=== PATIENT | female | born 1985 | race Caucasian/White ===

== ENCOUNTER 2019-12-18 12:53 | Emergency (ER) | payer MEDICAID, SELFPAY ==
[2019-12-18 12:59] VITALS: BP 164/87; PULSE 72; RESP 18; TEMP 36.3; O2SAT 100; BMI 31.3
--- NOTE | 2019-12-18 13:28 | W.ED.FEMALGU ---
HPI - Female Genitourinary General: Chief complaint: Urogenital-Female Stated complaint: pain with Time Seen by Provider: 12/18/19 13:19 History of Present Illness: HPI Narrative: Patient is a 34-year-old female who comes to the ED with abdominal pain with . Patient had a tubal ligation back in August. On November 29 patient had a positive test. And approximately 3 days after positive test she started having bleeding. She was then seen at hospital in [place] and they performed an hCG quant which was very low and ultrasound showed no intrauterine , but with low quant they did not think they would see anything. Patient's bleeding has slowed down and stopped. She has been seen her OB doctor multiple times and hCG quant has been checked several times. hCG quant values continue to increase but not at as high of a rate as expected in . Patient had a ultrasound performed on Friday, December 13 and the hCG quant was approximately 2200 and no intrauterine or fetus identified in falopian tubes. Patient has another appointment with OB on this coming Friday and doctor told her to go to ED if she notices any change in symptoms. Today she started having some mild pelvic pain that radiates to lower back pain and was wanting to get evaluated. Patient says she has not had any vaginal bleeding for the last 10 days and has no vaginal bleeding today. Denies any fever, chills, nausea/vomiting, diarrhea, constipation, blood in stool, hematuria. Patient does endorse some mild dysuria. Patient states that her pain is very mild and does not currently want any pain medications. Associated symptoms: Reports abdominal pain (pelvic pain-mild); Deny headache(s) or nausea Date of Last Menstrual Period: 10/31/19 Review of Systems Const: Denies: fever(s), chills or fatigue Eyes: Denies: change in vision or eye discomfort ENMT: Denies: throat pain, odynophagia, nasal discharge or nasal congestion Card: Denies: chest pain, palpitations, edema, swelling of feet/ankles, dyspnea on exertion or orthopnea Resp: Denies: dyspnea, productive cough or non-productive cough GI: Reports: abdominal pain (pelvic pain-mild); Denies: nausea, vomiting, diarrhea, constipation or hematochezia : Reports: dysuria and pelvic pain (mild); Denies: flank pain or hematuria Musc: Reports: back pain (new low back pain that ); Denies: neck pain or extremity swelling Skin/Breast: Denies: rash or new lesions Neuro: Denies: headache(s), numbness in extremities or weakness in extremities [facility] ED Female Reproductive History: Date of last menstrual period: 10/31/19 Physical Exam Const: COMMON NORMALS: no acute distress, patient oriented x3, healthy appearing and alert GENERAL APPEARANCE: cooperative and comfortable HENMT: COMMON NORMALS: normocephalic HEAD & SCALP: normocephalic MOUTH: Normal oral and palatal mucosa present THROAT: posterior oropharynx normal and uvula midline Neck/C-Spine: COMMON NORMALS: supple GENERAL: Yes normal visual inspection Resp: COMMON NORMALS: normal respiratory effort, No retractions, No use of accessory muscles and clear to auscultation bilaterally AUSCULTATION: clear to auscultation bilaterally Cardio: COMMON NORMALS: regular rate, regular rhythm, S1 normal heart sound present, S2 normal heart sound present, No gallops present (Cardio), No clicks present (Cardio), No murmurs present (Cardio) and Peripheral pulses 2+ throughout RATE: regular rate RHYTHM: regular rhythm HEART SOUNDS: S1 normal heart sound present and S2 normal heart sound present PERIPHERAL PULSES: Peripheral pulses 2+ throughout GI: COMMON NORMALS: Normal to inspection, nondistended, normoactive bowel sounds present, Soft to palpation, non-tender and no masses PALPATION: Yes Soft to palpation and Yes Bladder palpation abnormal : COMMON NORMALS: Yes no CVA tenderness BLADDER/KIDNEY EXAM: Yes no CVA tenderness and Yes Bladder palpation abnormal Bladder abnormal details: tender Back/Pelvis: COMMON NORMALS: no CVA tenderness Extremity: COMMON NORMALS: normal to inspection and no pedal edema Neuro: COMMON NORMALS: patient oriented x3 and moves all extremities SENSORIUM/ORIENTATION: Yes alert Skin: COMMON NORMALS: no rashes or lesions noted GENERAL SKIN EXAM: no rashes or lesions noted and dry skin Course Vital Signs: Vital signs: Vital Signs Temperature 97.3 F L 12/18/19 12:59 Pulse Rate 72 12/18/19 12:59 Respiratory Rate 18 12/18/19 12:59 Blood Pressure 164/87 12/18/19 12:59 Pulse Oximetry 100 12/18/19 12:59 MDM - Female MDM Narrative: Medical decision making narrative: Patient is a 34-year-old female comes to the ED with some mild abdominal pain with positive test. Positive test on November 29. Patient has no active bleeding and has not had any bleeding in approximately 10 days. Patient has had a tubal ligation and has been seen multiple times by her OB provider to evaluate her elevated hCG quant. She was last seen by her provider on Fridaydecember 13 and hCG quant was approximately 2200 and ultrasound was performed and showed no intrauterine and no gestational sac seen in the fallopian tubes. Physical exam shows a healthy female in no acute distress or pain. CBC, CMP and UA were all unremarkable here in the ED. hCG quant was 3421. Ultrasound of the pelvis with transvaginal showed no IUP or gestational sac seen in fallopian tubes. Patient was discharged and told to follow-up with her OB at her previously scheduled appointment on Friday. Patient to return to ED if she has any change or worsening symptoms. Patient understood and agreed with plan. Lab Data: Attestation: I reviewed the patient's lab results. Labs: Lab Results 12/18/19 12/18/19 12/18/19 Range/Units 13:24 13:40 13:40 WBC 8.2 (4.0-10.0) 10^3/ uL RBC 4.69 (4.1-5.3) 10^6/u L Hgb 13.0 (11.5-15.3) g/dL Hct 41.2 (37.0-47.0) % MCV 87.8 (81-99) fL MCH 27.7 L (28.0-34.0) pg MCHC 31.6 (30.0-36.0) g/dL RDW 12.9 (12.1-15.1) % Plt Count 354 (130-400) 10^3/c mm MPV 10.0 (7.4-10.4) fL Neut % (Auto) 61.0 % Lymph % (Auto) 26.9 % Bay % (Auto) 9.4 % Eos % (Auto) 1.7 % Baso % (Auto) 0.6 % Neut # (Auto) 4.99 (1.8-7.7) 10^3/u L Lymph # (Auto) 2.2 (0.8-4.8) 10^3/u L Bay # (Auto) 0.8 (0.2-0.9) 10^3/u L Eos # (Auto) 0.1 (0.0-0.8) 10^3/u L Baso # (Auto) 0.1 (0.0-0.1) 10^3/u L Nucleated RBC % (a uto) 0 % Nucleated RBCs # 0.0 /100WBC Sodium 137 (136-145) mmol/L Potassium 3.6 (3.5-5.1) mmol/L Chloride 103 (98-107) mmol/L Carbon Dioxide 25 (22-29) mmol/L Anion Gap 12.6 (5-19) BUN 11 (6-20) mg/dL Creatinine 0.5 (0.5-0.9) mg/dL GFR Calculation 140.4 H (90-130) mL/min Glucose 94 (65-115) mg/dL Calculated Osmolal ity 280 L (285-295) mOsm/k g Calcium 9.2 (8.5-10.5) mg/dL Total Bilirubin 0.2 (0.15-1.2) mg/dL AST 18 (0-32) U/L ALT 16 (0-33) U/L Alkaline Phosphata se 61 (35-105) IU/L Total Protein 7.8 (6.6-8.7) g/dL Albumin 4.8 (3.5-5.2) g/dL Globulin 3.0 (1.3-4.6) g/dL Lipase 39 (13-60) U/L Ser , Giovany i-Qnt 3421.00 mIU/mL Urine Color Yellow (Yellow) Urine Appearance Clear (CLEAR) Urine pH 7 (5-7) Ur Specific Gravit y 1.005 (1.005-1.030) Urine Protein Neg (Negative) Urine Glucose (UA) Norm (Normal) Urine Ketones Negative (Negative) Urine Blood Neg (Negative) Urine Nitrate Negative (Negative) Urine Bilirubin Neg (NEGATIVE) Urine Urobilinogen Norm (Negative) mg/dL Ur Leukocyte Mitzi ase Negative (Negative) Blood Type Rho(D) Type Antibody Screen 12/18/19 Range/Units 13:40 WBC (4.0-10.0) 10^3/ uL RBC (4.1-5.3) 10^6/u L Hgb (11.5-15.3) g/dL Hct (37.0-47.0) % MCV (81-99) fL MCH (28.0-34.0) pg MCHC (30.0-36.0) g/dL RDW (12.1-15.1) % Plt Count (130-400) 10^3/c mm MPV (7.4-10.4) fL Neut % (Auto) % Lymph % (Auto) % Bay % (Auto) % Eos % (Auto) % Baso % (Auto) % Neut # (Auto) (1.8-7.7) 10^3/u L Lymph # (Auto) (0.8-4.8) 10^3/u L Bay # (Auto) (0.2-0.9) 10^3/u L Eos # (Auto) (0.0-0.8) 10^3/u L Baso # (Auto) (0.0-0.1) 10^3/u L Nucleated RBC % (a uto) % Nucleated RBCs # /100WBC Sodium (136-145) mmol/L Potassium (3.5-5.1) mmol/L Chloride (98-107) mmol/L Carbon Dioxide (22-29) mmol/L Anion Gap (5-19) BUN (6-20) mg/dL Creatinine (0.5-0.9) mg/dL GFR Calculation (90-130) mL/min Glucose (65-115) mg/dL Calculated Osmolal ity (285-295) mOsm/k g Calcium (8.5-10.5) mg/dL Total Bilirubin (0.15-1.2) mg/dL AST (0-32) U/L ALT (0-33) U/L Alkaline Phosphata se (35-105) IU/L Total Protein (6.6-8.7) g/dL Albumin (3.5-5.2) g/dL Globulin (1.3-4.6) g/dL Lipase (13-60) U/L Ser , Giovany i-Qnt mIU/mL Urine Color (Yellow) Urine Appearance (CLEAR) Urine pH (5-7) Ur Specific Gravit y (1.005-1.030) Urine Protein (Negative) Urine Glucose (UA) (Normal) Urine Ketones (Negative) Urine Blood (Negative) Urine Nitrate (Negative) Urine Bilirubin (NEGATIVE) Urine Urobilinogen (Negative) mg/dL Ur Leukocyte Mitzi ase (Negative) Blood Type O Positive Rho(D) Type Positive Antibody Screen Negative Imaging Data: US OB: Attestation: I personally reviewed and interpreted this imaging study as follows: Radiologist's impression: Pelvic ultrasound with transvaginal?prelim report shows no /gestational sac seen in either the uterus or tubes. [address] [address] Ultrasound Report Signed Patient: Caryl Roberson Unit #: [id number] : 1985 Age/Sex: 34 / F ADM Date: 12/18/19 Loc: ER Room/Bed: Attending Dr: Ordering Provider/Ordering MD: Carl Godoy Date of Service: 12/18/19 Procedure(s): US OB lmt with transvaginal Accession Number(s): [id number] Report Number: [id number] PROCEDURE INFORMATION: Exam: US Duplex Artery and Vein of the Abdominal and/or Reproductive Organs, Complete Exam date and time: 12/18/2019 3:27 PM Age: 34 years old Clinical indication: Other: Pelvic pain; Gestational age or lmp: Lmp 5-31-20 (6wks 6 days); Additional info: Elevated hcg, tubal ligation in August TECHNIQUE: Imaging protocol: Real-time duplex ultrasound scan of the arterial and venous flow of the abdominal and/or reproductive organs with B-mode, color Doppler flow and spectral waveform analysis with image documentation. Exam focused on the region of clinical concern. Complete exam. Duplex images required to evaluate vascular conditions. COMPARISON: US transvaginal [id number] 02/03/2019 2:18 PM FINDINGS: Other vasculature: Doppler evaluation of the right ovary was performed and demonstrates appropriate arterial and venous waveforms. Doppler evaluation left ovary was performed and demonstrates good arterial and venous flow. Ovaries: Subcentimeter right ovarian cysts are noted. The right ovary is otherwise unremarkable. The right ovary measures 2.6 x 1.9 x 2.4 cm. The left ovary measures 2.3 x 2.1 x 2.3 cm. Subcentimeter left ovarian cysts are noted. The left ovary is unremarkable. IMPRESSION: No ovarian torsion. The ovaries are unremarkable in appearance. PROCEDURE INFORMATION: Exam: US , Limited and US , Transvaginal Exam date and time: 12/18/2019 3:27 PM Age: 34 years old Clinical indication: Other: Pelvic pain; Gestational age or lmp: Lmp 5-31-20 (6wks 6 days); Additional info: Elevated hcg, tubal ligation in August TECHNIQUE: Imaging protocol: Real-time ultrasound of the maternal uterus with image documentation. Transvaginal imaging was used for better evaluation of the fetus and adnexa. Exam focused on the clinical indication. COMPARISON: US transvaginal [id number] 02/03/2019 2:18 PM FINDINGS: Gestation: No gestational sac is identified in the uterus. No gestational sac in either adnexa. No ectopic . Yolk sac is not visualized. Heart rate: No pole or cardiac activity is identified. MATERNAL: Uterus: Uterus measures 8.9 x 4.6 x 5.2 cm. Endometrial stripe measures 8.6 mm. Uterus is retroflexed. Cervix: Probable nabothian cysts are noted in the cervix. Right adnexa: The right ovary measures 2.6 x 1.9 x 2.4 cm. Doppler evaluation of the right ovary was performed and demonstrates appropriate arterial and venous waveforms. Subcentimeter right ovarian cysts are noted. The right ovary is otherwise unremarkable. Left adnexa: The left ovary measures 2.3 x 2.1 x 2.3 cm. Doppler evaluation left ovary was performed and demonstrates good arterial and venous flow. Subcentimeter left ovarian cysts are noted. The left ovary is unremarkable. Other findings: No free fluid. US/US OB lmt with transvaginal IMPRESSION: 1. No gestational sac is identified in the uterus or either adnexa. This is a of indeterminate location. Follow-up ultrasound/follow-up serial beta hCG is recommended since early intrauterine , ectopic or spontaneous cannot be differentiated with this exam. 2. Otherwise unremarkable exam. No ovarian torsion. The ovaries are unremarkable in appearance. Discharge Plan Discharge Patient Disposition: Home, Self-Care Clinical Impression: Elevated serum hCG Condition: Stable Prescriptions: No Action No Known Home Medications RF: 0 Discharge Orders: Discharge Order (Routine); Ordered 12/18/19 Ordered By: Carl Godoy Discharge Diet: Regular Discharge Activity: Resume usual activity Activity Restrictions/Additional Instructions: Follow-up with medical provider at next scheduled appointment on this coming Friday. Your hCG quant level was 3421 on Friday. return to the ER or your medical provider if condition worsens. Please read and understand discharge instructions. If any questions, please ask. Discharge Date/Time: 12/18/19 15:55 Coding Level of Care Code ED Preconstruction Manager for Chg Fwd Exam Comprehensive
--- NOTE | 2019-12-18 13:45 | USR_ITS ---
PROCEDURE INFORMATION: Exam: US Duplex Artery and Vein of the Abdominal and/or Reproductive Organs, Complete Exam date and time: 12/18/2019 3:27 PM Age: 34 years old Clinical indication: Other: Pelvic pain; Gestational age or lmp: Lmp 5-31-20 (6wks 6 days); Additional info: Elevated hcg, tubal ligation in August TECHNIQUE: Imaging protocol: Real-time duplex ultrasound scan of the arterial and venous flow of the abdominal and/or reproductive organs with B-mode, color Doppler flow and spectral waveform analysis with image documentation. Exam focused on the region of clinical concern. Complete exam. Duplex images required to evaluate vascular conditions. COMPARISON: US transvaginal [id number] 02/03/2019 2:18 PM FINDINGS: Other vasculature: Doppler evaluation of the right ovary was performed and demonstrates appropriate arterial and venous waveforms. Doppler evaluation left ovary was performed and demonstrates good arterial and venous flow. Ovaries: Subcentimeter right ovarian cysts are noted. The right ovary is otherwise unremarkable. The right ovary measures 2.6 x 1.9 x 2.4 cm. The left ovary measures 2.3 x 2.1 x 2.3 cm. Subcentimeter left ovarian cysts are noted. The left ovary is unremarkable. IMPRESSION: No ovarian torsion. The ovaries are unremarkable in appearance. PROCEDURE INFORMATION: Exam: US , Limited and US , Transvaginal Exam date and time: 12/18/2019 3:27 PM Age: 34 years old Clinical indication: Other: Pelvic pain; Gestational age or lmp: Lmp 5-31-20 (6wks 6 days); Additional info: Elevated hcg, tubal ligation in August TECHNIQUE: Imaging protocol: Real-time ultrasound of the maternal uterus with image documentation. Transvaginal imaging was used for better evaluation of the fetus and adnexa. Exam focused on the clinical indication. COMPARISON: US transvaginal [id number] 02/03/2019 2:18 PM FINDINGS: Gestation: No gestational sac is identified in the uterus. No gestational sac in either adnexa. No ectopic . Yolk sac is not visualized. Heart rate: No pole or cardiac activity is identified. MATERNAL: Uterus: Uterus measures 8.9 x 4.6 x 5.2 cm. Endometrial stripe measures 8.6 mm. Uterus is retroflexed. Cervix: Probable nabothian cysts are noted in the cervix. Right adnexa: The right ovary measures 2.6 x 1.9 x 2.4 cm. Doppler evaluation of the right ovary was performed and demonstrates appropriate arterial and venous waveforms. Subcentimeter right ovarian cysts are noted. The right ovary is otherwise unremarkable. Left adnexa: The left ovary measures 2.3 x 2.1 x 2.3 cm. Doppler evaluation left ovary was performed and demonstrates good arterial and venous flow. Subcentimeter left ovarian cysts are noted. The left ovary is unremarkable. Other findings: No free fluid. US/US OB lmt with transvaginal IMPRESSION: 1. No gestational sac is identified in the uterus or either adnexa. This is a of indeterminate location. Follow-up ultrasound/follow-up serial beta hCG is recommended since early intrauterine , ectopic or spontaneous cannot be differentiated with this exam. 2. Otherwise unremarkable exam. No ovarian torsion. The ovaries are unremarkable in appearance.
[2019-12-18 13:56] LABS: Basophils # 0.1 10^3/uL (0.0-0.1); Basophils % 0.6 %; Eosinophils # 0.1 10^3/uL (0.0-0.8); Eosinophils % 1.7 %; Hematocrit 41.2 % (37.0-47.0); Lymphocytes # 2.2 10^3/uL (0.8-4.8); Lymphocytes % 26.9 %; Mean Corpuscular HGB Conc 31.6 g/dL (30.0-36.0); Mean Corpuscular Hemoglobin 27.7 pg (28.0-34.0); Mean Corpuscular Volume 87.8 fL (81-99); Monocytes # 0.8 10^3/uL (0.2-0.9); Monocytes % 9.4 %; Neutrophils # 4.99 10^3/uL (1.8-7.7); Nucleated Red Blood Cells % 0 %; Platelet Count 354 10^3/cmm (130-400); Red Blood Count 4.69 10^6/uL (4.1-5.3); Red Cell Distribution Width 12.9 % (12.1-15.1); White Blood Count 8.2 10^3/uL (4.0-10.0)
[2019-12-18 14:01] LABS: Add Urine Microscopic? NO
[2019-12-18 14:13] LABS: Bilirubin Urine Neg (NEGATIVE); Blood Urine Neg (Negative); Glucose Urine UA Norm (Normal); Ketones Urine Negative (Negative); Leukocyte Esterase Urine Negative (Negative); Nitrate Urine Negative (Negative); Protein Urine Neg (Negative); Specific Gravity, Urine 1.005 (1.005-1.030); Urine Appearance Clear (CLEAR); Urine Color Yellow (Yellow); Urobilinogen Urine Norm (Negative); pH Urine 7 (5-7)
[2019-12-18 14:28] LABS: Alanine Aminotransferase 16 U/L (0-33); Albumin Level 4.8 g/dL (3.5-5.2); Alkaline Phosphatase 61 IU/L (35-105); Anion Gap 12.6 (5-19); Aspartate Amino Transferase 18 U/L (0-32); Blood Urea Nitrogen 11 mg/dL (6-20); Calcium 9.2 mg/dL (8.5-10.5); Carbon Dioxide 25 mmol/L (22-29); Chloride 103 mmol/L (98-107); Glomerular Filtration Rate 140.4 mL/min (90-130); Glucose 94 mg/dL (65-115); Lipase 39 U/L (13-60); Osmolality Calculated 280 mOsm/kg (285-295); Potassium 3.6 mmol/L (3.5-5.1); Sodium 137 mmol/L (136-145); Total Bilirubin 0.2 mg/dL (0.15-1.2); Total Protein 7.8 g/dL (6.6-8.7)
== END 2019-12-18 15:55 | disposition home or self-care (01) ==
PROVIDERS: Emergency Provider Physician Assistant
DX: R78.89 Finding of other specified substances, not normally found in blood (principal)
CPT/HCPCS: 12345; 76815; 76817; 80053; 81003; 83690; 84702; 85025; 86850; 86900; 87040; 99282; 99283

== ENCOUNTER 2019-12-26 10:35 | Emergency (ER) | payer MEDICAID, SELFPAY ==
[2019-12-26 10:37] VITALS: BMI 31.3
[2019-12-26 10:41] VITALS: BP 145/83; PULSE 75; RESP 16; TEMP 36.7; O2SAT 98
--- NOTE | 2019-12-26 11:18 | ED_ITS ---
HPI - Skin/Abscess/Foreign Bdy General: Chief complaint: Skin/Abscess/Foreign Body Stated complaint: RASH/POSS POISON RAY Time Seen by Provider: 12/26/19 10:39 Source: patient Mode of arrival: ambulatory Limitations: no limitations History of Present Illness: HPI narrative: exposure to poison ray yesterday complaint: rash Location: generalized and face Review of Systems General: Reports: 10 or more systems reviewed and unremarkable except in HPI and below Skin/Breast: Reports: rash and pruritus [facility] ED Female Reproductive History: Date of last menstrual period: 10/31/19 Physical Exam Const: COMMON NORMALS: no acute distress, patient oriented x3, no limitations and alert GENERAL APPEARANCE: cooperative and comfortable ORIENTATION/CONSCIOUSNESS: Yes awake, Yes oriented to person, Yes oriented to place and Yes oriented to time HENMT: COMMON NORMALS: normocephalic, atraumatic, external ears normal, EAC's normal, TM's normal bilaterally and Normal external nose present HEAD & SCALP: normal to inspection, normocephalic and atraumatic FACE & SINUS: normal facial exam, sinuses nontender and face symmetric NOSE: Normal external nose present, Normal nares present and No nasal discharge present EXTERNAL EAR: Yes external ears normal EXTERNAL AUDITORY CANAL: EAC's normal TYMPANIC MEMBRANE: TM's normal bilaterally MOUTH: Normal oral and palatal mucosa present, lip normal and tongue normal THROAT: posterior oropharynx normal, tonsils normal and uvula midline Eye: COMMON NORMALS: Equal, round and reactive pupils present, EOMs intact bilaterally and conjunctivae normal GENERAL EYE: appearance normal, both eyes and all related structures and normal light reflex EYELID: eyelids normal CONJUNCTIVA: Yes conjunctivae normal PUPIL: Yes Equal, round and reactive pupils present EOM: Yes EOM abnormal DIRECT OPHTHALMOSCOPY: Yes normal light reflex Neck/C-Spine: COMMON NORMALS: full ROM, no lymphadenopathy, supple, no meningeal signs, no JVD and Thyroid normal GENERAL: Yes normal visual inspection THYROID: Thyroid normal CERVICAL SPINE: Yes cervical ROM normal and Yes normal cervical lordosis Lymph: LYMPHATIC: no lymphadenopathy noted Chest: COMMONS NORMALS: normal inspection of the chest and normal palpation of entire chest wall Resp: COMMON NORMALS: normal respiratory effort, No retractions and clear to auscultation bilaterally AUSCULTATION: clear to auscultation bilaterally Cardio: COMMON NORMALS: no JVD, regular rate, regular rhythm, S1 normal heart sound present, S2 normal heart sound present, No gallops present (Cardio), No clicks present (Cardio), No murmurs present (Cardio), No rub (Cardio) and Peripheral pulses 2+ throughout RATE: regular rate RHYTHM: regular rhythm HEART SOUNDS: S1 normal heart sound present and S2 normal heart sound present PERIPHERAL PULSES: Peripheral pulses 2+ throughout GI: COMMON NORMALS: Normal to inspection, nondistended, normoactive bowel sounds present, Soft to palpation, non-tender and no masses PALPATION: Yes Soft to palpation : COMMON NORMALS: Yes no CVA tenderness and Yes normal external appearance BLADDER/KIDNEY EXAM: Yes no CVA tenderness Back/Pelvis: COMMON NORMALS: no CVA tenderness, thoracic and lumbar spine normal to inspection, no thoracic nor lumbar tenderness and thoraco-lumbar ROM normal Extremity: COMMON NORMALS: normal to inspection, full ROM, capillary refill normal, no joint enlargement, no clubbing, cyanosis or edema, no calf tenderness and no pedal edema GENERAL: Yes normal exam except as noted Neuro: COMMON NORMALS: patient oriented x3, moves all extremities, no focal motor deficits, no sensory deficits noted and gait normal SENSORIUM/ORIENTATION: Yes alert, Yes oriented to person, Yes oriented to place and Yes oriented to time MENINGEAL SIGNS: Yes no meningeal signs Psych: COMMON NORMALS: mental status grossly normal, Normal thought process present, cooperative, normal affect, speech normal and activity/motor behavior normal SPEECH: Yes normal speech THOUGHT PROCESS: Normal thought process present Skin: COMMON NORMALS: no wounds and turgor normal GENERAL SKIN EXAM: turgor normal RASHES: rashes noted (generalized papular lesions) Course ED course: Pt came into contact with poison ray 1 to 2 days ago. She has a rash that is generalized on her body and includes her face as well. I will prescribe her a medrol dose khoi but advise that she attempts benadryl and topical hydrocortisone before she fills script. Pt needs to also contact her OB doctor. Vital Signs: Vital signs: Vital Signs Temperature 98.1 F 12/26/19 10:41 Pulse Rate 75 12/26/19 10:41 Respiratory Rate 16 12/26/19 10:41 Blood Pressure 145/83 12/26/19 10:41 Pulse Oximetry 98 12/26/19 10:41 Discharge Plan Discharge Patient Disposition: Home Clinical Impression: Poison ray dermatitis Condition: Stable Prescriptions: New methylprednisolone [Medrol (Khoi)] 4 mg tablets,dose pack See Rx Instructions .ROUTE .COMPLEX Qty: 21 RF: 0 No Action No Known Home Medications RF: 0 Discharge Diet: Usual diet Discharge Activity: Resume usual activity Activity Restrictions/Additional Instructions: follow up with OB tomorrow about filling your medrol dose khoi and take benadryl OTC every 8 hours as well as topical hydrocortisone for itching. Due to your the use of steroids in the first trimester can be harmful to your baby. Close monitoring with OB will be needed before you should fill this script. Coding Level of Care Code ED Pipe Coverer And Insulator for Meena Barry
== END 2019-12-26 11:40 | disposition home or self-care (01) ==
PROVIDERS: Emergency Provider Nurse Practitioner Family
DX: L23.7 Allergic contact dermatitis due to plants, except food (principal)
CPT/HCPCS: 12345; 99281; 99282

== ENCOUNTER 2020-01-02 11:55 | Emergency (ER) | payer MEDICAID, SELFPAY ==
[2020-01-02] VITALS (8 sets, daily range): BP systolic 110–132; BP diastolic 75–93; PULSE 75–91; RESP 14–20; TEMP 36.9; O2SAT 96–100; BMI 31.3
--- NOTE | 2020-01-02 12:12 | USR_ITS ---
PROCEDURE INFORMATION: Exam: US First Trimester, Transabdominal and US , Transvaginal Exam date and time: 01/02/2020 1:05 PM Age: 34 years old Clinical indication: complicated by abdominal or pelvic pain; Left lower quadrant; First trimester; Gestational age or lmp: Unclear (recent diagnosis of ectopic); Patient HX: Recent diagnosis of ectopic 3 days ago. Patient given methotrexate. H/o tubal ligation reversal TECHNIQUE: Imaging protocol: Real-time transabdominal obstetrical ultrasound of the maternal pelvis and a first trimester , less than 14 weeks 0 days, with image documentation. Transvaginal imaging was used for better evaluation of the fetus and adnexa. COMPARISON: US OB lmt with transvaginal 12/18/2019 3:09 PM FINDINGS: Gestation: Negative for intrauterine gestational sac, pole, or yolk sac MATERNAL: Uterus: Unremarkable. 8.7 cm x 4.4 cm x 6 cm Endometrium: 7.5 mm Cervix: Cervical myometrial cyst present. Right adnexa: Unremarkable. 3 cm x 2.4 cm x 3.4 cm Left adnexa: Unremarkable. 4.9 cm x 2.5 cm x 2.6 cm Intraperitoneal space: There is small volume intraperitoneal free fluid, right adnexa US/US OB <=14 wk fetus w transvag IMPRESSION: 1. Negative for a intrauterine gestational sac pole and yolk sac 2. Negative uterus, and endometrium 3. Negative bilateral ovaries 4. Small free fluid collection is seen right adnexa . 5. Small cervical myometrial cyst.
--- NOTE | 2020-01-02 12:15 | ED_ITS ---
HPI - General: Chief complaint: Abdominal Pain Stated complaint: abd pain-known ECTOPIC Time Seen by Provider: 01/02/20 12:06 History of Present Illness: HPI Narrative: Patient is currently . She is 4 para 3. Patient has had a tubal ligation. She was diagnosed with an ectopic 3 days ago and given methotrexate. Patient reports a sudden severe increase in pain earlier this morning. MD Complaint: abdominal pain and vaginal bleeding Onset (ago): day(s) Pain Consistency: constant Location: pelvis Severity: severe Quality: Stabbing, Sharp and Constant Relieving factors: none Exacerbating factors: movement Vaginal bleeding: light Date of Last Menstrual Period: 10/31/19 Patient : Yes OB History - Current : other (Ectopic) Review of Systems General: Reports: 10 or more systems reviewed and unremarkable except in HPI and below PFSH ED PFSH: Social History Smoking and tobacco status: never smoked Alcohol intake: never Substance/Drug Use: never Female Reproductive History: Date of last menstrual period: 10/31/19 Physical Exam Const: COMMON NORMALS: patient oriented x3, no limitations and alert GENERAL APPEARANCE: in distress HENMT: COMMON NORMALS: normocephalic, atraumatic, external ears normal and Normal external nose present HEAD & SCALP: normocephalic and atraumatic FACE & SINUS: normal facial exam NOSE: Normal external nose present EXTERNAL EAR: Yes external ears normal MOUTH: Normal oral and palatal mucosa present Neck/C-Spine: COMMON NORMALS: full ROM, no lymphadenopathy, supple, no meningeal signs and no JVD GENERAL: Yes normal visual inspection Resp: COMMON NORMALS: normal respiratory effort, No retractions, No use of accessory muscles and clear to auscultation bilaterally AUSCULTATION: clear to auscultation bilaterally Cardio: COMMON NORMALS: no JVD, regular rate and regular rhythm RATE: regular rate RHYTHM: regular rhythm GI: COMMON NORMALS: Normal to inspection, nondistended, normoactive bowel sounds present, Soft to palpation, non-tender, No hepatosplenomegaly present and no masses INSPECTION: Yes normal to inspection AUSCULTATION: Yes normoactive bowel sounds PALPATION: Yes Soft to palpation and Yes No hepatosplenomegaly present PERCUSSION: normal to percussion : COMMON NORMALS: Yes no CVA tenderness and Yes normal external appearance BLADDER/KIDNEY EXAM: Yes no CVA tenderness Back/Pelvis: COMMON NORMALS: no CVA tenderness, thoracic and lumbar spine normal to inspection, no thoracic nor lumbar tenderness, thoraco-lumbar ROM normal and straight leg raise negative bilaterally Extremity: COMMON NORMALS: normal to inspection, full ROM, capillary refill normal, no joint enlargement, no clubbing, cyanosis or edema, no calf tenderness and no pedal edema Neuro: COMMON NORMALS: patient oriented x3, moves all extremities, no focal motor deficits and no sensory deficits noted SENSORIUM/ORIENTATION: Yes alert MENINGEAL SIGNS: Yes no meningeal signs Psych: COMMON NORMALS: mental status grossly normal, Normal thought process present, cooperative, normal affect and speech normal SPEECH: Yes normal speech THOUGHT PROCESS: Normal thought process present Skin: COMMON NORMALS: no rashes or lesions noted, no wounds, turgor normal, no jaundice, no petechiae and no mottling GENERAL SKIN EXAM: no rashes or lesions noted and turgor normal Course ED course: Patient has a known ectopic . Ultrasound does not show evidence of Yoshi into her ovary rupture or active bleeding. Patient will be dismissed from the emergency department. She is instructed to contact her OB doctor in [facility] first thing in the morning and to return to the emergency room immediately for any problems or concerns. Vital Signs: Vital signs: Vital Signs Temperature 98.4 F 01/02/20 12:01 Pulse Rate 76 01/02/20 13:30 Respiratory Rate 18 01/02/20 14:32 Blood Pressure 110/75 01/02/20 13:30 Pulse Oximetry 98 01/02/20 14:32 MDM - OB/Uterine Contractions Lab Data: Labs: Lab Results 01/02/20 01/02/20 01/02/20 Range/Units 12:33 12:33 12:33 WBC 9.8 (4.0-10.0) 10^3/ uL RBC 4.50 (4.1-5.3) 10^6/u L Hgb 12.4 (11.5-15.3) g/dL Hct 38.2 (37.0-47.0) % MCV 84.9 (81-99) fL MCH 27.6 L (28.0-34.0) pg MCHC 32.5 (30.0-36.0) g/dL RDW 12.6 (12.1-15.1) % Plt Count 361 (130-400) 10^3/c mm MPV 10.2 (7.4-10.4) fL Neut % (Auto) 67.3 % Lymph % (Auto) 23.4 % [place] % (Auto) 4.9 % Eos % (Auto) 3.1 % Baso % (Auto) 0.7 % Neut # (Auto) 6.56 (1.8-7.7) 10^3/u L Lymph # (Auto) 2.3 (0.8-4.8) 10^3/u L [place] # (Auto) 0.5 (0.2-0.9) 10^3/u L Eos # (Auto) 0.3 (0.0-0.8) 10^3/u L Baso # (Auto) 0.1 (0.0-0.1) 10^3/u L Nucleated RBC % (a uto) 0 % Nucleated RBCs # 0.0 /100WBC Sodium 137 (136-145) mmol/L Potassium 3.6 (3.5-5.1) mmol/L Chloride 103 (98-107) mmol/L Carbon Dioxide 23 (22-29) mmol/L Anion Gap 14.6 (5-19) BUN 12 (6-20) mg/dL Creatinine 0.7 (0.5-0.9) mg/dL GFR Calculation 95.2 (90-130) mL/min Glucose 98 (65-115) mg/dL Calculated Osmolal ity 280 L (285-295) mOsm/k g Calcium 9.5 (8.5-10.5) mg/dL Total Bilirubin 0.2 (0.15-1.2) mg/dL AST 25 (0-32) U/L ALT 29 (0-33) U/L Alkaline Phosphata se 66 (35-105) IU/L Total Protein 7.8 (6.6-8.7) g/dL Albumin 4.8 (3.5-5.2) g/dL Globulin 3.0 (1.3-4.6) g/dL Ser , Giovany i-Qnt 6401.00 mIU/mL Discharge Plan Discharge Patient Disposition: Home Clinical Impression: Ectopic Qualifiers: Location of ectopic : unspecified location Intrauterine status: without intrauterine Qualified Code(s): O00.90 - Unspecified ectopic without intrauterine Condition: Stable Prescriptions: New Tylenol-Codeine #3 300-30 mg tablet 1 tab PO Q4H PRN (Reason: pain) Qty: 15 RF: 0 No Action Benadryl 25 mg Capsule 25 mg PO Q6H PRN (Reason: Rash) RF: 0 Discharge Orders: Discharge Order (Routine); Ordered 01/02/20 Ordered By: Monster Mohamud Coding Level of Care Code ED Construction Worker for Chg Fwd Exam Comprehensive
[2020-01-02] MEDS: morphine 4 mg/mL SDV 1 mL IVP (12:36)
[2020-01-02] MEDS: sodium chloride 0.9% 1,000 ML 999 ML IV (12:37)
[2020-01-02] MEDS: ondansetron 2 mg/ML SDV 2 mL 4 MG IVP ×2 (12:37→15:29)
[2020-01-02 12:49] LABS: Basophils # 0.1 10^3/uL (0.0-0.1); Basophils % 0.7 %; Eosinophils # 0.3 10^3/uL (0.0-0.8); Eosinophils % 3.1 %; Hematocrit 38.2 % (37.0-47.0); Hemoglobin 12.4 g/dL (11.5-15.3); Lymphocytes # 2.3 10^3/uL (0.8-4.8); Lymphocytes % 23.4 %; Mean Corpuscular HGB Conc 32.5 g/dL (30.0-36.0); Mean Corpuscular Hemoglobin 27.6 pg (28.0-34.0); Mean Corpuscular Volume 84.9 fL (81-99); Mean Platelet Volume 10.2 fL (7.4-10.4); Monocytes # 0.5 10^3/uL (0.2-0.9); Monocytes % 4.9 %; Neutrophils # 6.56 10^3/uL (1.8-7.7); Neutrophils % 67.3 %; Nucleated Red Blood Cells % 0 %; Platelet Count 361 10^3/cmm (130-400); Red Cell Distribution Width 12.6 % (12.1-15.1); White Blood Count 9.8 10^3/uL (4.0-10.0)
[2020-01-02 13:09] LABS: Alanine Aminotransferase 29 U/L (0-33); Albumin Level 4.8 g/dL (3.5-5.2); Alkaline Phosphatase 66 IU/L (35-105); Anion Gap 14.6 (5-19); Aspartate Amino Transferase 25 U/L (0-32); Blood Urea Nitrogen 12 mg/dL (6-20); Calcium 9.5 mg/dL (8.5-10.5); Carbon Dioxide 23 mmol/L (22-29); Chloride 103 mmol/L (98-107); Glomerular Filtration Rate 95.2 mL/min (90-130); Glucose 98 mg/dL (65-115); Osmolality Calculated 280 mOsm/kg (285-295); Potassium 3.6 mmol/L (3.5-5.1); Sodium 137 mmol/L (136-145); Total Bilirubin 0.2 mg/dL (0.15-1.2); Total Protein 7.8 g/dL (6.6-8.7)
[2020-01-02] MEDS: fentaNYL 50 mcg/mL INJ 2mL 100 MCG IVP ×2 (14:32→15:29)
== END 2020-01-02 15:48 | disposition home or self-care (01) ==
PROVIDERS: Emergency Provider Family Medicine
DX: O00.90 Unspecified ectopic pregnancy without intrauterine pregnancy (principal)
CPT/HCPCS: 12345; 36415; 76801; 76817; 80053; 84702; 85025; 96361; 96374; 96375; 96376; 99283; J2270; J2405; J3010; J7030

== ENCOUNTER 2020-06-04 07:14 | Emergency (ER) | payer MEDICAID, SELFPAY ==
[2020-06-04 07:27] VITALS: BP 140/83; PULSE 76; RESP 16; TEMP 36.6; O2SAT 99; BMI 32.3
--- NOTE | 2020-06-04 07:36 | ED_ITS ---
HPI - Back Pain/Injury General: Chief Complaint: Back Pain/Injury Stated Complaint: KIDNEY PAIN Time Seen by Provider: 06/04/20 07:17 Source: patient Mode of arrival: ambulatory Limitations: no limitations History of Present Illness: HPI Narrative: Patient is a 35-year-old female who presents to ED today with a complaint of bilateral kidney pain . Patient tells me pain began a few days ago and has been constant since. She tells me approximately a month ago she had an episode of similar pains that lasted a week and then subsided on their own. Patient is not having any urinary symptoms such as dysuria, hematuria, frequency, urgency. She has no history of kidney stones. She is not running any fevers, chills, and has no body aches. Patient denies any injury or trauma. She feels the pain radiates around into her abdomen and states sometimes it feels like her stomach is hungry. She has a history of occasional heartburn but states this does not feel similar in any way. She feels slightly nauseous but no vomiting. She is having normal bowel movements. No chance of per patient. No abnormal vaginal bleeding or vaginal discharge. 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 MD elicited complaint: back pain Onset (ago): day(s) Timing: constant Severity: moderate Pain scale (0-10): 6 Similar Symptoms Previously: Yes Location: left flank and right flank Radiation: abdomen Exacerbating factors: none Relieving factors: none Associated symptoms: Reports abdominal pain and nausea; Deny chills, dysuria, fatigue, fever(s), syncope, urinary urgency or vomiting Work related injury: No Review of Systems Const: Denies: fever(s), chills, body aches, fatigue or malaise Card: Denies: chest pain, palpitations, irregular heart rhythm, edema, swelling of feet/ankles, lightheadedness, syncope, dyspnea on exertion or orthopnea Resp: Denies: dyspnea, productive cough, hemoptysis or chest congestion GI: Reports: abdominal pain and nausea; Denies: vomiting, hematemesis, coffee ground emesis, dysphagia, heartburn, diarrhea, constipation, pain on defecation, change in stool character, hematochezia, melena or white/light colored stool : Reports: flank pain; Denies: difficulty voiding, dysuria, urinary frequency, urinary urgency, urinary hesitancy, vaginal bleeding, vaginal discharge or pelvic pain Musc: Reports: back pain; Denies: neck pain, extremity pain, extremity swelling, joint pain or joint swelling Skin/Breast: Denies: rash Neuro: Denies: headache(s), numbness in extremities, weakness in extremities or sensory changes PFSH ED PFSH: Social History Smoking and tobacco status: never smoked Alcohol intake: never Female Reproductive History: Date of last menstrual period: 10/31/19 Physical Exam Const: COMMON NORMALS: no acute distress, average body habitus, patient oriented x3, no limitations, healthy appearing, alert and well nourished Chest: COMMONS NORMALS: normal inspection of the chest and normal palpation of entire chest wall Resp: COMMON NORMALS: normal respiratory effort and clear to auscultation bilaterally AUSCULTATION: clear to auscultation bilaterally Cardio: COMMON NORMALS: regular rate and regular rhythm RATE: regular rate RHYTHM: regular rhythm GI: COMMON NORMALS: Normal to inspection, nondistended, normoactive bowel sounds present, Soft to palpation, non-tender, No hepatosplenomegaly present and no masses PALPATION: Yes Soft to palpation and Yes No hepatosplenomegaly present : COMMON NORMALS: Yes no CVA tenderness BLADDER/KIDNEY EXAM: Yes no CVA tenderness OTHER: states pain is not reproducible-states it feels deep in there Back/Pelvis: COMMON NORMALS: no CVA tenderness Extremity: COMMON NORMALS: normal to inspection Neuro: COMMON NORMALS: patient oriented x3 SENSORIUM/ORIENTATION: Yes alert Skin: COMMON NORMALS: no rashes or lesions noted GENERAL SKIN EXAM: no rashes or lesions noted Course ED course: Patient's pain and nausea has improved. Vital Signs: Vital signs: Vital Signs Temperature 97.8 F 06/04/20 07:27 Pulse Rate 75 06/04/20 07:41 Respiratory Rate 16 06/04/20 07:41 Blood Pressure 107/84 06/04/20 07:41 Pulse Oximetry 99 06/04/20 07:41 MDM - Back Pain/Injury MDM Narrative: Medical decision making narrative: Patient appears in no acute distress. Her vital signs are completely stable. Her lab work consisting of a CBC, CMP, lipase, and UA are all non-concerning at this time. I do not feel patient's discomfort is related to her kidneys at this time. We discussed imaging however I feel the risks of radiation at this time would outweigh any benefit. We did discuss following up with her PCP this week for further evaluation especially if pain continues or worsens. Return to ED precautions given. Patient understands and is agreeable to current plan. Lab Data: Labs: Lab Results 06/04/20 06/04/20 06/04/20 Range/Units 08:00 08:05 08:05 WBC 5.7 (4.0-10.0) 10^3/ uL RBC 4.75 (4.1-5.3) 10^6/u L Hgb 12.7 (11.5-15.3) g/dL Hct 39.5 (37.0-47.0) % MCV 83.2 (81-99) fL MCH 26.7 L (28.0-34.0) pg MCHC 32.2 (30.0-36.0) g/dL RDW 13.8 (12.1-15.1) % Plt Count 369 (130-400) 10^3/c mm MPV 10.4 (7.4-10.4) fL Neut % (Auto) 48.3 % Lymph % (Auto) 38.4 % [place] % (Auto) 10.8 % Eos % (Auto) 1.6 % Baso % (Auto) 0.7 % Neut # (Auto) 2.77 (1.8-7.7) 10^3/u L Lymph # (Auto) 2.2 (0.8-4.8) 10^3/u L [place] # (Auto) 0.6 (0.2-0.9) 10^3/u L Eos # (Auto) 0.1 (0.0-0.8) 10^3/u L Baso # (Auto) 0.0 (0.0-0.1) 10^3/u L Nucleated RBC % (a uto) 0 % Nucleated RBCs # 0.0 /100WBC Sodium 138 (136-145) mmol/L Potassium 3.8 (3.5-5.1) mmol/L Chloride 105 (98-107) mmol/L Carbon Dioxide 24 (22-29) mmol/L Anion Gap 12.8 (5-19) BUN 14 (6-20) mg/dL Creatinine 0.6 (0.5-0.9) mg/dL GFR Calculation 113.1 (90-130) mL/min Glucose 130 H (65-115) mg/dL Calculated Osmolal ity 288 (285-295) mOsm/k g Calcium 9.1 (8.5-10.5) mg/dL Total Bilirubin 0.3 (0.15-1.2) mg/dL AST 14 (0-32) U/L ALT 11 (0-33) U/L Alkaline Phosphata se 70 (35-105) IU/L Total Protein 7.0 (6.6-8.7) g/dL Albumin 4.0 (3.5-5.2) g/dL Globulin 3.0 (1.3-4.6) g/dL Lipase 44 (13-60) U/L HCG, Qual (Negative) Urine Color Straw (Yellow) Urine Appearance Clear (CLEAR) Urine pH 5 (5-7) Ur Specific Gravit y 1.025 (1.005-1.030) Urine Protein Neg (Negative) Urine Glucose (UA) Norm (Normal) Urine Ketones Negative (Negative) Urine Blood Neg (Negative) Urine Nitrate Negative (Negative) Urine Bilirubin Neg (Negative) Urine Urobilinogen Norm (Negative) mg/dL Ur Leukocyte Mitzi ase Negative (Negative) 06/04/20 Range/Units 08:05 WBC (4.0-10.0) 10^3/ uL RBC (4.1-5.3) 10^6/u L Hgb (11.5-15.3) g/dL Hct (37.0-47.0) % MCV (81-99) fL MCH (28.0-34.0) pg MCHC (30.0-36.0) g/dL RDW (12.1-15.1) % Plt Count (130-400) 10^3/c mm MPV (7.4-10.4) fL Neut % (Auto) % Lymph % (Auto) % [place] % (Auto) % Eos % (Auto) % Baso % (Auto) % Neut # (Auto) (1.8-7.7) 10^3/u L Lymph # (Auto) (0.8-4.8) 10^3/u L [place] # (Auto) (0.2-0.9) 10^3/u L Eos # (Auto) (0.0-0.8) 10^3/u L Baso # (Auto) (0.0-0.1) 10^3/u L Nucleated RBC % (a uto) % Nucleated RBCs # /100WBC Sodium (136-145) mmol/L Potassium (3.5-5.1) mmol/L Chloride (98-107) mmol/L Carbon Dioxide (22-29) mmol/L Anion Gap (5-19) BUN (6-20) mg/dL Creatinine (0.5-0.9) mg/dL GFR Calculation (90-130) mL/min Glucose (65-115) mg/dL Calculated Osmolal ity (285-295) mOsm/k g Calcium (8.5-10.5) mg/dL Total Bilirubin (0.15-1.2) mg/dL AST (0-32) U/L ALT (0-33) U/L Alkaline Phosphata se (35-105) IU/L Total Protein (6.6-8.7) g/dL Albumin (3.5-5.2) g/dL Globulin (1.3-4.6) g/dL Lipase (13-60) U/L HCG, Qual Negative (Negative) Urine Color (Yellow) Urine Appearance (CLEAR) Urine pH (5-7) Ur Specific Gravit y (1.005-1.030) Urine Protein (Negative) Urine Glucose (UA) (Normal) Urine Ketones (Negative) Urine Blood (Negative) Urine Nitrate (Negative) Urine Bilirubin (Negative) Urine Urobilinogen (Negative) mg/dL Ur Leukocyte Mtizi ase (Negative) Discharge Plan Discharge Patient Disposition: Home Clinical Impression: Back pain Qualifiers: Back pain location: thoracic back pain Chronicity: acute Back pain laterality: bilateral Qualified Code(s): M54.6 - Pain in thoracic spine Condition: Stable Prescriptions: No Action Benadryl 25 mg Capsule 25 mg PO Q6H PRN (Reason: Rash) RF: 0 Tylenol-Codeine #3 300-30 mg tablet 1 tab PO Q4H PRN (Reason: pain) Qty: 15 RF: 0 Discharge Orders: Discharge ED (Routine); Ordered 06/04/20 Ordered By: Filomena Ca Activity Restrictions/Additional Instructions: Please follow-up with your primary care provider within the week for further evaluation if pain persists. You may return to the emergency department at anytime for worsening pain, repetitive episodes of vomiting, fevers, or any other concerns you may have. Coding Level of Care Code ED Print Developer for Meena Fwd Exam Comprehensive
[2020-06-04 07:41] VITALS: BP 107/84; PULSE 75; RESP 16; O2SAT 99
[2020-06-04] MEDS: ondansetron 2 mg/ML SDV 2 mL 4 MG IVP (08:05)
[2020-06-04] MEDS: morphine 4 mg/mL SDV 1 mL IVP (08:06)
[2020-06-04 08:21] LABS: Add Urine Microscopic? NO
[2020-06-04 08:31] LABS: Basophils % 0.7 %; Eosinophils # 0.1 10^3/uL (0.0-0.8); Eosinophils % 1.6 %; Hematocrit 39.5 % (37.0-47.0); Hemoglobin 12.7 g/dL (11.5-15.3); Lymphocytes # 2.2 10^3/uL (0.8-4.8); Lymphocytes % 38.4 %; Mean Corpuscular HGB Conc 32.2 g/dL (30.0-36.0); Mean Corpuscular Hemoglobin 26.7 pg (28.0-34.0); Mean Corpuscular Volume 83.2 fL (81-99); Mean Platelet Volume 10.4 fL (7.4-10.4); Monocytes # 0.6 10^3/uL (0.2-0.9); Monocytes % 10.8 %; Neutrophils # 2.77 10^3/uL (1.8-7.7); Neutrophils % 48.3 %; Nucleated Red Blood Cells % 0 %; Platelet Count 369 10^3/cmm (130-400); Red Blood Count 4.75 10^6/uL (4.1-5.3); Red Cell Distribution Width 13.8 % (12.1-15.1); White Blood Count 5.7 10^3/uL (4.0-10.0)
[2020-06-04 08:40] LABS: Bilirubin Urine Neg (Negative); Blood Urine Neg (Negative); Glucose Urine UA Norm (Normal); Ketones Urine Negative (Negative); Leukocyte Esterase Urine Negative (Negative); Nitrate Urine Negative (Negative); Protein Urine Neg (Negative); Specific Gravity, Urine 1.025 (1.005-1.030); Urine Appearance Clear (CLEAR); Urine Color Straw (Yellow); Urobilinogen Urine Norm (Negative); pH Urine 5 (5-7)
[2020-06-04 08:41] LABS: Alanine Aminotransferase 11 U/L (0-33); Alkaline Phosphatase 70 IU/L (35-105); Anion Gap 12.8 (5-19); Aspartate Amino Transferase 14 U/L (0-32); Blood Urea Nitrogen 14 mg/dL (6-20); Calcium 9.1 mg/dL (8.5-10.5); Carbon Dioxide 24 mmol/L (22-29); Chloride 105 mmol/L (98-107); Glomerular Filtration Rate 113.1 mL/min (90-130); Glucose 130 mg/dL (65-115); HCG, Serum Qual Negative (Negative); Lipase 44 U/L (13-60); Osmolality Calculated 288 mOsm/kg (285-295); Potassium 3.8 mmol/L (3.5-5.1); Sodium 138 mmol/L (136-145); Total Bilirubin 0.3 mg/dL (0.15-1.2)
[2020-06-04 09:11] VITALS: BP 114/79; PULSE 59; RESP 16; O2SAT 98
== END 2020-06-04 09:11 | disposition home or self-care (01) ==
PROVIDERS: Emergency Provider Physician Assistant
DX: M54.6 Pain in thoracic spine (principal)
CPT/HCPCS: 12345; 80053; 81003; 83690; 84703; 85025; 96374; 96375; 99282; 99283; J2270; J2405

== ENCOUNTER 2020-12-10 10:45 | Emergency (ER) | payer MEDICAID, SELFPAY ==
[2020-12-10 11:13] VITALS: BP 134/97; PULSE 76; RESP 16; TEMP 36.8; O2SAT 96; BMI 30.2
--- NOTE | 2020-12-10 11:33 | XRR_ITS ---
PROCEDURE INFORMATION: Exam: XR Chest Exam date and time: 12/10/2020 11:33 AM Age: 35 years old Clinical indication: Shortness of breath; Additional info: SOB TECHNIQUE: Imaging protocol: XR of the chest. Views: 1 view. COMPARISON: No relevant prior studies available. FINDINGS: Lungs: Unremarkable. No consolidation. Pleural spaces: Unremarkable. No pleural effusion. No pneumothorax. Heart/Mediastinum: Unremarkable. No cardiomegaly. Bones/joints: Unremarkable. XR/XR chest 1V portable [id number] IMPRESSION: No acute findings.
[2020-12-10 11:36] VITALS: O2SAT 96
--- NOTE | 2020-12-10 11:45 | ED_ITS ---
HPI - COVID General: Chief Complaint: COVID symptoms Stated Complaint: body aches, lose of smell and taste Time Seen by Provider: 12/10/20 11:21 Source: patient Mode of arrival: ambulatory Limitations: no limitations Triage information: Has fever, cough or shortness of breath . Exposure to COVID + person last 14 days History of Present Illness: HPI Narrative: Patient is a 35-year-old female with no significant past medical history who presents to the emergency department with cough, body aches, loss of taste and smell. Symptoms have been ongoing for about 8 days. Prior to that she was exposed to someone who was sick at work who stated that she had strep throat at the time. Because her symptoms are not improving she is here to be evaluated. Prior covid testing: no COVID 19 common symptoms: positive fever(s), chills, cough, dyspnea, fatigue, body aches, loss of sense of smell and/or taste, throat pain and nasal congestion COVID 19 other sytmptoms: positive lethargy; negative chest pain, pleuritic pain, requiring oxygen, requiring more oxygen, respiratory distress, cyanosis, confusion or new neurological complaints Onset (ago): day(s) (8) Severity: mild COVID Results: SARS-CoV-2 Antigen (Rapid) Negative (Negative) 12/10/20 12:15 12/10/20 SARS-CoV-2 RNA (RT-PCR) Pending 12/10/20 12:15 12/10/20 Review of Systems General: Reports: 10 or more systems reviewed and unremarkable except in HPI and below Const: Reports: fever(s), chills, body aches and fatigue ENMT: Reports: throat pain and nasal congestion Card: Denies: chest pain Resp: Reports: dyspnea Neuro: Denies: confusion [facility] ED PFSH: Social History Smoking and tobacco status: never smoked Alcohol intake: never Female Reproductive History: Date of last menstrual period: 10/31/19 Physical Exam Const: COMMON NORMALS: no acute distress, average body habitus, patient oriented x3, no limitations, healthy appearing, alert and well nourished HENMT: COMMON NORMALS: normocephalic, atraumatic and moist oral mucous membranes HEAD & SCALP: normocephalic and atraumatic Neck/C-Spine: COMMON NORMALS: no meningeal signs and no JVD Resp: COMMON NORMALS: normal respiratory effort, No retractions, No use of accessory muscles, clear to auscultation bilaterally and percussion normal AUSCULTATION: clear to auscultation bilaterally PERCUSSION: percussion normal Cardio: COMMON NORMALS: no JVD, regular rate, regular rhythm, S1 normal heart sound present, S2 normal heart sound present, No gallops present (Cardio), No clicks present (Cardio), No murmurs present (Cardio), No rub (Cardio) and Peripheral pulses 2+ throughout RATE: regular rate RHYTHM: regular rhythm HEART SOUNDS: S1 normal heart sound present and S2 normal heart sound present PERIPHERAL PULSES: Peripheral pulses 2+ throughout GI: COMMON NORMALS: Normal to inspection, nondistended, normoactive bowel sounds present, Soft to palpation, non-tender, No hepatosplenomegaly present, no masses and no bruits PALPATION: Yes Soft to palpation and Yes No hepatosplenomegaly present Extremity: COMMON NORMALS: normal to inspection, full ROM, capillary refill normal, no calf tenderness and no pedal edema Neuro: COMMON NORMALS: patient oriented x3 SENSORIUM/ORIENTATION: Yes alert MENINGEAL SIGNS: Yes no meningeal signs Skin: COMMON NORMALS: no rashes or lesions noted, no wounds, turgor normal, no jaundice, no petechiae and no mottling GENERAL SKIN EXAM: no rashes or lesions noted and turgor normal Course Reevaluation(s): Reevaluation #1: Discussed her lab and imaging findings with her. Negative for acute findings. We will discharge her home with no new orders. She is advised to self quarantine for 10 days from symptom onset. We will contact her with the results of the PCR testing. Time: 14:15 Vital Signs: Vital signs: Vital Signs Temperature 98.2 F 12/10/20 11:13 Pulse Rate 87 12/10/20 14:21 Respiratory Rate 16 12/10/20 11:13 Blood Pressure 128/96 12/10/20 14:21 Pulse Oximetry 96 12/10/20 14:21 MDM - COVID MDM Narrative: Medical decision making narrative: 85-year-old female patient presents to the emergency department with nonspecific symptoms of just not feeling well. Evaluation in the emergency department was unremarkable she is discharged home with no new orders but she is to self isolate until results of her PCR testing is done. Medical Records: Attestation: I reviewed the patient's medical records. Lab Data: Attestation: I reviewed the patient's lab results. Labs: Lab Results 12/10/20 12/10/20 12/10/20 Range/Units 12:15 12:15 12:15 WBC (4.0-10.0) 10^3/ uL RBC (4.1-5.3) 10^6/u L Hgb (11.5-15.3) g/dL Hct (37.0-47.0) % MCV (81-99) fL MCH (28.0-34.0) pg MCHC (30.0-36.0) g/dL RDW (12.1-15.1) % Plt Count (130-400) 10^3/c mm MPV (7.4-10.4) fL Neut % (Auto) % Lymph % (Auto) % [place] % (Auto) % Eos % (Auto) % Baso % (Auto) % Neut # (Auto) (1.8-7.7) 10^3/u L Lymph # (Auto) (0.8-4.8) 10^3/u L [place] # (Auto) (0.2-0.9) 10^3/u L Eos # (Auto) (0.0-0.8) 10^3/u L Baso # (Auto) (0.0-0.1) 10^3/u L Nucleated RBC % (a uto) % Nucleated RBCs # /100WBC Sodium (136-145) mmol/L Potassium (3.5-5.1) mmol/L Chloride (98-107) mmol/L Carbon Dioxide (22-29) mmol/L Anion Gap (5-19) BUN (6-20) mg/dL Creatinine (0.5-0.9) mg/dL GFR Calculation (90-130) mL/min Glucose (65-115) mg/dL Calculated Osmolal ity (285-295) mOsm/k g Lactic Acid (0.5-2.2) mmol/L Calcium (8.5-10.5) mg/dL Total Bilirubin (0.15-1.2) mg/dL AST (0-32) U/L ALT (0-33) U/L Alkaline Phosphata se (35-105) IU/L Creatine Kinase (26-192) U/L C-Reactive Protein (0.0-4.9) mg/L Total Protein (6.6-8.7) g/dL Albumin (3.5-5.2) g/dL Globulin (1.3-4.6) g/dL Procalcitonin (0-0.5) ng/mL Nasal/Oral COVID-1 9 PCR Cancelled Influenza Type A A g (Negative) Influenza Type B A g (Negative) SARS-CoV-2 Ag (Rap id) Negative (Negative) Group A Strep Rapi d Negative (Negative) 12/10/20 12/10/20 12/10/20 Range/Units 12:55 12:55 12:55 WBC 7.2 (4.0-10.0) 10^3/ uL RBC 5.15 (4.1-5.3) 10^6/u L Hgb 14.6 (11.5-15.3) g/dL Hct 44.3 (37.0-47.0) % MCV 86.0 (81-99) fL MCH 28.3 (28.0-34.0) pg MCHC 33.0 (30.0-36.0) g/dL RDW 12.4 (12.1-15.1) % Plt Count 311 (130-400) 10^3/c mm MPV 10.7 H (7.4-10.4) fL Neut % (Auto) 68.5 % Lymph % (Auto) 23.5 % [place] % (Auto) 6.5 % Eos % (Auto) 0.3 % Baso % (Auto) 0.4 % Neut # (Auto) 4.92 (1.8-7.7) 10^3/u L Lymph # (Auto) 1.7 (0.8-4.8) 10^3/u L [place] # (Auto) 0.5 (0.2-0.9) 10^3/u L Eos # (Auto) 0.0 (0.0-0.8) 10^3/u L Baso # (Auto) 0.0 (0.0-0.1) 10^3/u L Nucleated RBC % (a uto) 0 % Nucleated RBCs # 0.0 /100WBC Sodium 141 (136-145) mmol/L Potassium 3.9 (3.5-5.1) mmol/L Chloride 105 (98-107) mmol/L Carbon Dioxide 24 (22-29) mmol/L Anion Gap 15.9 (5-19) BUN 6 (6-20) mg/dL Creatinine 0.5 (0.5-0.9) mg/dL GFR Calculation 139.6 H (90-130) mL/min Glucose 89 (65-115) mg/dL Calculated Osmolal ity 289 (285-295) mOsm/k g Lactic Acid 1.0 (0.5-2.2) mmol/L Calcium 9.0 (8.5-10.5) mg/dL Total Bilirubin 0.2 (0.15-1.2) mg/dL AST 59 H (0-32) U/L ALT 118 H (0-33) U/L Alkaline Phosphata se 103 (35-105) IU/L Creatine Kinase 42 (26-192) U/L C-Reactive Protein 4.8 (0.0-4.9) mg/L Total Protein 7.4 (6.6-8.7) g/dL Albumin 4.0 (3.5-5.2) g/dL Globulin 3.4 (1.3-4.6) g/dL Procalcitonin 0.03 (0-0.5) ng/mL Nasal/Oral COVID-1 9 PCR Influenza Type A A g (Negative) Influenza Type B A g (Negative) SARS-CoV-2 Ag (Rap id) (Negative) Group A Strep Rapi d (Negative) 12/10/20 Range/Units 13:05 WBC (4.0-10.0) 10^3/ uL RBC (4.1-5.3) 10^6/u L Hgb (11.5-15.3) g/dL Hct (37.0-47.0) % MCV (81-99) fL MCH (28.0-34.0) pg MCHC (30.0-36.0) g/dL RDW (12.1-15.1) % Plt Count (130-400) 10^3/c mm MPV (7.4-10.4) fL Neut % (Auto) % Lymph % (Auto) % [place] % (Auto) % Eos % (Auto) % Baso % (Auto) % Neut # (Auto) (1.8-7.7) 10^3/u L Lymph # (Auto) (0.8-4.8) 10^3/u L [place] # (Auto) (0.2-0.9) 10^3/u L Eos # (Auto) (0.0-0.8) 10^3/u L Baso # (Auto) (0.0-0.1) 10^3/u L Nucleated RBC % (a uto) % Nucleated RBCs # /100WBC Sodium (136-145) mmol/L Potassium (3.5-5.1) mmol/L Chloride (98-107) mmol/L Carbon Dioxide (22-29) mmol/L Anion Gap (5-19) BUN (6-20) mg/dL Creatinine (0.5-0.9) mg/dL GFR Calculation (90-130) mL/min Glucose (65-115) mg/dL Calculated Osmolal ity (285-295) mOsm/k g Lactic Acid (0.5-2.2) mmol/L Calcium (8.5-10.5) mg/dL Total Bilirubin (0.15-1.2) mg/dL AST (0-32) U/L ALT (0-33) U/L Alkaline Phosphata se (35-105) IU/L Creatine Kinase (26-192) U/L C-Reactive Protein (0.0-4.9) mg/L Total Protein (6.6-8.7) g/dL Albumin (3.5-5.2) g/dL Globulin (1.3-4.6) g/dL Procalcitonin (0-0.5) ng/mL Nasal/Oral COVID-1 9 PCR Influenza Type A A g Negative (Negative) Influenza Type B A g Negative (Negative) SARS-CoV-2 Ag (Rap id) (Negative) Group A Strep Rapi d (Negative) Imaging Data: CXR: Attestation: I personally reviewed and interpreted this imaging study as follows: Radiologist's impression: [place] [id number] [place], [place] [address]ZGsf ReportSigned Patient: Caryl Sapp #: [id number]: 1985Acct#:[id number]/Sex: 35 / FADM Date: 12/10/20Loc: ERRoom/Be d:Attending Dr: Ordering Provider/Ordering MD: Becca Rivera MD, [facility] Date of Service: 12/10/20 Procedure(s): XR chest 1V portable [id number] Accession Number(s): [id number] Report Number: [id number] PROCEDURE INFORMATION: Exam: XR Chest Exam date and time: 12/10/2020 11:33 AM Age: 35 years old Clinical indication: Shortness of breath; Additional info: SOB TECHNIQUE: Imaging protocol: XR of the chest. Views: 1 view. COMPARISON: No relevant prior studies available. FINDINGS: Lungs: Unremarkable. No consolidation. Pleural spaces: Unremarkable. No pleural effusion. No pneumothorax. Heart/Mediastinum: Unremarkable. No cardiomegaly. Bones/joints: Unremarkable. XR/XR chest 1V portable [id number] IMPRESSION: No acute findings. Dictated By:Pierre Orona DOSigned By:Pierre Orona DOScathi Date/Time:12/10/20 1330DD/ 1328 COVID Results: SARS-CoV-2 Antigen (Rapid) Negative (Negative) 12/10/20 12:15 12/10/20 SARS-CoV-2 RNA (RT-PCR) Pending 12/10/20 12:15 12/10/20 Discharge Plan Discharge Patient Disposition: Home Clinical Impression: Viral illness Condition: Stable Prescriptions: Continued Benadryl 25 mg Capsule 25 mg PO Q6H PRN (Reason: Rash) RF: 0 Tylenol-Codeine #3 300-30 mg tablet 1 tab PO Q4H PRN (Reason: pain) Qty: 15 RF: 0 Discharge Orders: Discharge ED (Routine); Ordered 12/10/20 Ordered By: Becca Rivera Referrals: Caroline De Dios DO [Primary Care Provider] - 1-3 days Discharge Diet: Usual diet Discharge Activity: Increase activity as tolerated Patient Instructions: Viral Syndrome (ED) Activity Restrictions/Additional Instructions: Return for any new or worsening symptoms. Follow-up with your primary care provider within 3 days. You will be contacted with the results of the COVID-19 PCR test. Meanwhile you need to self isolate for 10 days from symptom onset. Coding Level of Care Code ED Vet Tech for Meena Fwd Exam Comprehensive
[2020-12-10 13:18] VITALS: BP 118/94; PULSE 84; O2SAT 97
[2020-12-10 13:18] LABS: Rapid Strep A Test Negative (Negative)
[2020-12-10 13:21] LABS: Basophils % 0.4 %; Eosinophils % 0.3 %; Hematocrit 44.3 % (37.0-47.0); Hemoglobin 14.6 g/dL (11.5-15.3); Lymphocytes # 1.7 10^3/uL (0.8-4.8); Lymphocytes % 23.5 %; Mean Corpuscular Hemoglobin 28.3 pg (28.0-34.0); Mean Platelet Volume 10.7 fL (7.4-10.4); Monocytes # 0.5 10^3/uL (0.2-0.9); Monocytes % 6.5 %; Neutrophils # 4.92 10^3/uL (1.8-7.7); Neutrophils % 68.5 %; Nucleated Red Blood Cells % 0 %; Platelet Count 311 10^3/cmm (130-400); Red Blood Count 5.15 10^6/uL (4.1-5.3); Red Cell Distribution Width 12.4 % (12.1-15.1); White Blood Count 7.2 10^3/uL (4.0-10.0)
[2020-12-10 13:34] LABS: SARS Covid-2 Antigen Negative (Negative)
[2020-12-10 13:54] LABS: Influenza A by IFA Negative (Negative); Influenza B by IFA Negative (Negative)
[2020-12-10 13:54] LABS: Alanine Aminotransferase 118 U/L (0-33); Alkaline Phosphatase 103 IU/L (35-105); Anion Gap 15.9 (5-19); Aspartate Amino Transferase 59 U/L (0-32); Blood Urea Nitrogen 6 mg/dL (6-20); C Reactive Protein 4.8 mg/L (0.0-4.9); Carbon Dioxide 24 mmol/L (22-29); Chloride 105 mmol/L (98-107); Creatine Phosphokinase 42 U/L (26-192); Globulin 3.4 g/dL (1.3-4.6); Glomerular Filtration Rate 139.6 mL/min (90-130); Glucose 89 mg/dL (65-115); Osmolality Calculated 289 mOsm/kg (285-295); Potassium 3.9 mmol/L (3.5-5.1); Sodium 141 mmol/L (136-145); Total Bilirubin 0.2 mg/dL (0.15-1.2); Total Protein 7.4 g/dL (6.6-8.7)
[2020-12-10 13:56] LABS: Procalcitonin 0.03 ng/mL (0-0.5)
[2020-12-10 14:21] VITALS: BP 128/96; PULSE 87; O2SAT 96
[2020-12-12 03:57] LABS: Quest SARS-CoV-2 RNA DETECTED (NOT DETECTED)
== END 2020-12-10 14:35 | disposition home or self-care (01) ==
PROVIDERS: Emergency Provider Family Medicine; PCP Obstetrics & Gynecology
DX: U07.1 COVID-19 (principal)
CPT/HCPCS: 36415; 71045; 80053; 82550; 83605; 84145; 85025; 86140; 87081; 87426; 87635; 87804; 87880; 99283

== ENCOUNTER 2021-01-29 16:01 | Emergency (ER) | payer MEDICAID, SELFPAY ==
--- NOTE | 2021-01-29 | US_ITS ---
WS: [id number] ULTRASOUND SOFT TISSUES LEFT lower quadrant pain. HISTORY: LLQ PAIN COMPARISON: None available. TECHNIQUE: 2-D and color Doppler imaging is submitted. Ultrasound is performed bilaterally in the lower quadrants. No solid or cystic masses. No inflammator y changes or fluid. US/US appendix [id number] IMPRESSION: Negative bilateral lower quadrant ultrasound.
--- NOTE | 2021-01-29 16:15 | US_ITS ---
WS: [id number] RENAL ULTRASOUND HISTORY: lower abd pain, rule out appendicitis COMPARISON: None available. TECHNIQUE: 2-D and color Doppler imaging of the kidney submitted. Right kidney: 12.2 cm x 4.8 cm x 4.5 cm. Normal echogenicity with no hydronephrosis or mass. Left kidney: 8.1 cm x 3.3 cm x 4.4 cm. Normal echogenicity with no hydronephrosis or mass. Aorta: Normal. Urinary Bladder: Normal distention. No inflammatory changes in the RIGHT lower quadrant. US/US renal BI* [id number] IMPRESSION: Normal renal ultrasound.
[2021-01-29 16:31] VITALS: BP 140/88; PULSE 72; RESP 18; TEMP 36.6; O2SAT 99; BMI 33.9
[2021-01-29 18:20] LABS: Basophils # 0.1 10^3/uL (0.0-0.1); Basophils % 0.6 %; Eosinophils # 0.1 10^3/uL (0.0-0.8); Eosinophils % 0.6 %; Hemoglobin 13.9 g/dL (11.5-15.3); Lymphocytes # 2.8 10^3/uL (0.8-4.8); Lymphocytes % 25.6 %; Mean Corpuscular HGB Conc 33.1 g/dL (30.0-36.0); Mean Corpuscular Hemoglobin 28.3 pg (28.0-34.0); Mean Corpuscular Volume 85.4 fl (81-99); Mean Platelet Volume 10.2 fL (7.4-10.4); Monocytes % 8.7 %; Neutrophils # 6.99 10^3/uL (1.8-7.7); Neutrophils % 64.3 %; Nucleated Red Blood Cells % 0 %; Platelet Count 393 10^3/cmm (130-400); Red Blood Count 4.92 10^6/uL (4.1-5.3); Red Cell Distribution Width 13.1 % (12.1-15.1); White Blood Count 10.9 10^3/uL (4.0-10.0)
--- NOTE | 2021-01-29 18:30 | USR_ITS ---
PROCEDURE INFORMATION: Exam: US First Trimester, Transabdominal and US , Transvaginal Exam date and time: 01/29/2021 6:30 PM Age: 36 years old Clinical indication: complicated by abdominal or pelvic pain; Left lower quadrant; First trimester (<14 weeks 0 days); Gestational age or lmp: 5 w 1 day; ; Prior surgery; Surgery date: 6+ months; Surgery type: Tubal reversal; Additional info: Prior HX of L sided ecotpic pregn, evaluate L adnexa TECHNIQUE: Imaging protocol: Real-time transabdominal obstetrical ultrasound of the maternal pelvis and a first trimester , less than 14 weeks 0 days, with image documentation. Transvaginal imaging was used for better evaluation of the fetus, adnexa, and/or cervix. COMPARISON: US appendix [id number] 01/29/2021 5:00 PM FINDINGS: Gestation: No visualized intrauterine gestational sac. MATERNAL: Uterus: Unremarkable. Endometrial stripe measures 1.1 cm in thickness within normal limits. Cervix: Nabothian cysts noted in the cervix. Right adnexa: Unremarkable. Left adnexa: Dominant simple appearing left ovarian cyst measuring up to 3.7 cm. No yolk sac or pole seen within the cystic lesion. Intraperitoneal space: No intraperitoneal free fluid. US/US OB <=14 wk fetus w transvag IMPRESSION: 1. No visualized intrauterine gestational sac. Findings may relate to early gestational age, correlate with clinical history and beta HCG levels. Consider serial beta hCGs and/or short-term follow-up ultrasound to establish viability. 2. Dominant simple appearing cystic lesion in the left ovary measuring 3.7 cm in size.
--- NOTE | 2021-01-29 18:35 | W.ED.GENADLT ---
HPI - General Adult General: Chief complaint: Abdominal Pain Stated complaint: L. ABD PAIN/5 WKS PREG Time Seen by Provider: 01/29/21 17:53 History of Present Illness: HPI narrative: Patient is a 36-year-old female with a history of prior ectopic from 2020 presenting to the emergency room for evaluation of lower abdominal pain. Patient is currently 5 weeks 2 days by LMP. Patient for the last few days has noticed left lower quadrant abdominal pain. Patient is concerned that she may be having ectopic again. Patient says that the pain is very similar to last years pain. Denies any vaginal bleeding, cramps, nausea vomiting, or other abdominal pain. Patient denies any symptoms of dysuria, polyuria, hematuria. No other history of prior abdominal surgery. Her last ectopic was medically managed with methotrexate. Onset:3 days ago Duration:3 days Location:LLQ abdominal pain Severity:mild Review of Systems Narrative: Constitutional: No fever, no chills. HEENT: No vision changes CV: No chest pain, no palpitations PULM: no cough, no dyspnea. GI: +LLQ abdominal pain, no N/V/D. : No dysuria MSKEL: No muscle pain SKIN: No new rashes, no lesions. NEURO: No headache, no focal weakness. HEME: No visible bruises PSYCH: Normal mood PFSH ED PFSH: Social History Smoking and tobacco status: never smoked Alcohol intake: never Female Reproductive History: Date of last menstrual period: 10/31/19 Physical Exam Narrative: EXAM NARRATIVE: Head: Atraumatic Eyes: PERRL, conjunctiva without injection ENT: Mucous membrane moist NECK: Supple, ROM intact LUNGS: LCTAB, no crackles/rhonchi CV: RRR ABDOMEN: Soft, + mild tenderness palpation the left lower quadrant, no guarding or rebound tenderness, no CVA tenderness, no McBurney's point tenderness, no Angelo sign EXTREMITY: Normal ROM SKIN: No rash or erythema NEURO: Awake and alert, no focal motor deficits PSYCH: Normal mood and affect Course Vital Signs: Vital signs: Vital Signs Temperature 98 F 01/29/21 16:31 Pulse Rate 72 01/29/21 16:31 Respiratory Rate 16 01/29/21 20:26 Blood Pressure 140/88 01/29/21 16:31 Pulse Oximetry 99 01/29/21 16:31 MDM - General Adult MDM Narrative: Medical decision making narrative: 36-year-old female presenting to the emergency room for evaluation of LLQo pain. Patient has a history of atopic from 1 year prior. On exam, patient is mild tenderness palpation. Vitals within normal limit. No guarding no rebound tenderness. Patient with white count 10.9. White count stable at 13.9. Transvaginal ultrasound did not confirm IUP at this time. Given beta of 915, instructed patient to come back to the emergency room next 48 to 72 hours for repeat beta and transvaginal ultrasound. With a cutoff greater than 1200, we should be able to visualize the IUP vs ectopic on US. Disposition: Discharge. Patient is given strict return precaution for any worsening abdominal, new vaginal discharge, passage of clot, or any new or concerning complaints. Lab Data: Labs: Lab Results 01/29/21 01/29/21 01/29/21 Range/Units 18:02 18:02 18:02 WBC 10.9 H (4.0-10.0) 10^3/ uL RBC 4.92 (4.1-5.3) 10^6/u L Hgb 13.9 (11.5-15.3) g/dL Hct 42.0 (37.0-47.0) % MCV 85.4 (81-99) fl MCH 28.3 (28.0-34.0) pg MCHC 33.1 (30.0-36.0) g/dL RDW 13.1 (12.1-15.1) % Plt Count 393 (130-400) 10^3/c mm MPV 10.2 (7.4-10.4) fL Neut % (Auto) 64.3 % Lymph % (Auto) 25.6 % [place] % (Auto) 8.7 % Eos % (Auto) 0.6 % Baso % (Auto) 0.6 % Neut # (Auto) 6.99 (1.8-7.7) 10^3/u L Lymph # (Auto) 2.8 (0.8-4.8) 10^3/u L [place] # (Auto) 1.0 H (0.2-0.9) 10^3/u L Eos # (Auto) 0.1 (0.0-0.8) 10^3/u L Baso # (Auto) 0.1 (0.0-0.1) 10^3/u L Nucleated RBC % (a uto) 0 % Nucleated RBCs # 0.0 /100WBC Sodium 137 (136-145) mmol/L Potassium 3.4 L (3.5-5.1) mmol/L Chloride 100 (98-107) mmol/L Carbon Dioxide 23 (22-29) mmol/L Anion Gap 17.4 (5-19) BUN 7 (6-20) mg/dL Creatinine 0.6 (0.5-0.9) mg/dL GFR Calculation 112.5 (90-130) mL/min Glucose 79 (65-115) mg/dL Calculated Osmolal ity 281 L (285-295) mOsm/k g Calcium 9.1 (8.5-10.5) mg/dL Total Bilirubin 0.5 (0.15-1.2) mg/dL AST 20 (0-32) U/L ALT 18 (0-33) U/L Alkaline Phosphata se 72 (35-105) IU/L C-Reactive Protein 5.2 H (0.0-4.9) mg/L Total Protein 7.9 (6.6-8.7) g/dL Albumin 4.6 (3.5-5.2) g/dL Globulin 3.3 (1.3-4.6) g/dL Lipase 28 (13-60) U/L Ser , Giovany i-Qnt 915.40 mIU/mL Imaging Data^: Other Imaging: Radiologist's impression: [address] [id number] ReportSigned Patient: Caryl Roberson #: [id number]: 1985Acct#:[id number]/Sex: 36 / FADM Date: 01/29/21Loc: ERRoom/Bed:Attending Dr: Ordering Provider/Ordering MD: Lara Flannery MD Date of Service: 01/29/21 Procedure(s): US OB <=14 wk fetus w transvag Accession Number(s): [id number] Report Number: [id number] PROCEDURE INFORMATION: Exam: US First Trimester, Transabdominal and US , Transvaginal Exam date and time: 01/29/2021 6:30 PM Age: 36 years old Clinical indication: complicated by abdominal or pelvic pain; Left lower quadrant; First trimester (<14 weeks 0 days); Gestational age or lmp: 5 w 1 day; ; Prior surgery; Surgery date: 6+ months; Surgery type: Tubal reversal; Additional info: Prior HX of L sided ecotpic pregn, evaluate L adnexa TECHNIQUE: Imaging protocol: Real-time transabdominal obstetrical ultrasound of the maternal pelvis and a first trimester , less than 14 weeks 0 days, with image documentation. Transvaginal imaging was used for better evaluation of the fetus, adnexa, and/or cervix. COMPARISON: [place] appendix [id number] 01/29/2021 5:00 PM FINDINGS: Gestation: No visualized intrauterine gestational sac. MATERNAL: Uterus: Unremarkable. Endometrial stripe measures 1.1 cm in thickness within normal limits. Cervix: Nabothian cysts noted in the cervix. Right adnexa: Unremarkable. Left adnexa: Dominant simple appearing left ovarian cyst measuring up to 3.7 cm. No yolk sac or pole seen within the cystic lesion. Intraperitoneal space: No intraperitoneal free fluid. US/US OB <=14 wk fetus w transvag IMPRESSION: 1. No visualized intrauterine gestational sac. Findings may relate to early gestational age, correlate with clinical history and beta HCG levels. Consider serial beta hCGs and/or short-term follow-up ultrasound to establish viability. 2. Dominant simple appearing cystic lesion in the left ovary measuring 3.7 cm in size. Dictated By:Pierre Orona DOSigned By:Pierre Orona DOSigned Date/Time:01/29/211957DD/ 55 Discharge Plan Discharge Patient Disposition: Home Clinical Impression: Condition: Stable Prescriptions: No Action Vitamin Tablet 1 tab PO DAILY RF: 0 Discharge Orders: Discharge ED (Routine); Ordered 01/29/21 Ordered By: Lara Flannery Referrals: Caroline De Dios DO [Primary Care Provider] - Discharge Diet: Advance as tolerated Discharge Activity: Resume usual activity Patient Instructions: (ED) Activity Restrictions/Additional Instructions: Please come back to the emergency room in the next 48-72 hours for repeat beta hCG. Coding Level of Care Code ED Design Printer Balloon for Meena Barry
[2021-01-29 18:41] LABS: Alanine Aminotransferase 18 U/L (0-33); Albumin Level 4.6 g/dL (3.5-5.2); Alkaline Phosphatase 72 IU/L (35-105); Anion Gap 17.4 (5-19); Aspartate Amino Transferase 20 U/L (0-32); Blood Urea Nitrogen 7 mg/dL (6-20); C Reactive Protein 5.2 mg/L (0.0-4.9); Calcium 9.1 mg/dL (8.5-10.5); Carbon Dioxide 23 mmol/L (22-29); Chloride 100 mmol/L (98-107); Globulin 3.3 g/dL (1.3-4.6); Glomerular Filtration Rate 112.5 mL/min (90-130); Glucose 79 mg/dL (65-115); Lipase 28 U/L (13-60); Osmolality Calculated 281 mOsm/kg (285-295); Potassium 3.4 mmol/L (3.5-5.1); Sodium 137 mmol/L (136-145); Total Bilirubin 0.5 mg/dL (0.15-1.2); Total Protein 7.9 g/dL (6.6-8.7)
[2021-01-29 20:26] VITALS: RESP 16
== END 2021-01-29 20:20 | disposition home or self-care (01) ==
PROVIDERS: Emergency Provider Emergency Medicine; PCP Obstetrics & Gynecology
DX: O26.891 Other specified pregnancy related conditions, first trimester (principal); R10.30 Lower abdominal pain, unspecified; Z3A.01 Less than 8 weeks gestation of pregnancy
CPT/HCPCS: 36415; 76705; 76770; 76801; 76817; 80053; 83690; 84702; 85025; 86140; 99283

== ENCOUNTER 2021-01-31 14:53 | Emergency (ER) | payer MEDICAID, SELFPAY ==
[2021-01-31 15:12] VITALS: BP 129/87; PULSE 70; RESP 17; TEMP 37.2; O2SAT 98
--- NOTE | 2021-01-31 17:08 | W.ED.GENADLT ---
HPI - General Adult General: Chief complaint: General Medical Stated complaint: HCG CHECK Time Seen by Provider: 01/31/21 17:06 History of Present Illness: HPI narrative: Patient is a 36-year-old female comes to the ED for an hCG level check. Patient has a history of an ectopic approximately 1 year ago. Patient was seen here in the ED on Friday, January 29 and she had an hCG level of 915, an ultrasound was performed and did not see any intrauterine or gestational sac identified. She was instructed by the ED doctor to return in 3 days to have hCG levels rechecked and a possible ultrasound performed pending hCG levels. Today patient says her abdominal pain from a couple days ago has completely resolved. She has no current complaints. Denies fevers, chills, nausea/vomiting, abdominal pain, vaginal discharge, vaginal bleeding, bladder or bowel symptoms. Associated symptoms: Deny chest pain, dyspnea, headache(s), nausea, rash, palpitations or vomiting Review of Systems Const: Denies: fever(s), chills or fatigue Eyes: Denies: change in vision or eye discomfort ENMT: Denies: throat pain, odynophagia, nasal discharge or nasal congestion Card: Denies: chest pain, palpitations, edema, swelling of feet/ankles, dyspnea on exertion or orthopnea Resp: Denies: dyspnea, productive cough or non-productive cough GI: Denies: abdominal pain, nausea, vomiting, diarrhea, constipation or hematochezia : Denies: flank pain, dysuria or hematuria Musc: Denies: neck pain, back pain or extremity swelling Skin/Breast: Denies: rash or new lesions Neuro: Denies: headache(s), numbness in extremities or weakness in extremities PFSH ED PFSH: Social History Smoking and tobacco status: never smoked Alcohol intake: never Female Reproductive History: Date of last menstrual period: 12/24/20 Physical Exam Const: COMMON NORMALS: no acute distress, patient oriented x3, healthy appearing and alert GENERAL APPEARANCE: cooperative and comfortable HENMT: COMMON NORMALS: normocephalic HEAD & SCALP: normocephalic MOUTH: Normal oral and palatal mucosa present THROAT: posterior oropharynx normal and uvula midline Eye: COMMON NORMALS: Equal, round and reactive pupils present PUPIL: Yes Equal, round and reactive pupils present Neck/C-Spine: COMMON NORMALS: supple GENERAL: Yes normal visual inspection Resp: COMMON NORMALS: normal respiratory effort, No retractions, No use of accessory muscles and clear to auscultation bilaterally AUSCULTATION: clear to auscultation bilaterally Cardio: COMMON NORMALS: regular rate, regular rhythm, S1 normal heart sound present, S2 normal heart sound present, No gallops present (Cardio), No clicks present (Cardio), No murmurs present (Cardio) and Peripheral pulses 2+ throughout RATE: regular rate RHYTHM: regular rhythm HEART SOUNDS: S1 normal heart sound present and S2 normal heart sound present PERIPHERAL PULSES: Peripheral pulses 2+ throughout GI: COMMON NORMALS: Normal to inspection, nondistended, normoactive bowel sounds present, Soft to palpation, non-tender and no masses PALPATION: Yes Soft to palpation : COMMON NORMALS: Yes no CVA tenderness BLADDER/KIDNEY EXAM: Yes no CVA tenderness Back/Pelvis: COMMON NORMALS: no CVA tenderness Extremity: COMMON NORMALS: normal to inspection Neuro: COMMON NORMALS: patient oriented x3 and moves all extremities SENSORIUM/ORIENTATION: Yes alert Skin: GENERAL SKIN EXAM: dry skin Course Vital Signs: Vital signs: Vital Signs Temperature 98.9 F 01/31/21 15:12 Pulse Rate 70 01/31/21 15:12 Respiratory Rate 16 01/31/21 20:04 Blood Pressure 124/82 01/31/21 20:04 Pulse Oximetry 97 01/31/21 20:04 MDM - General Adult MDM Narrative: Medical decision making narrative: Patient is a 36-year-old female comes to the ED to have hCG levels rechecked. She has a history of an ectopic last year. She was seen here in the ED 3 days ago with some abdominal pain. hCG level was 915 and ultrasound was unable to show any gestational sac or intrauterine . She was instructed to come back here to the ED to be reevaluated and having another hCG quant to level checked 48 to 72 hours later. Here in the ED today she has no complaints and says her abdominal pain from a couple days ago was completely resolved. Vitals are stable. Patient appears healthy and is in no acute distress or pain. Patient has no abdominal tenderness. Physical exam is benign. hCG level 1821. Ultrasound still showed no intrauterine or gestational sac. Ectopic cannot be ruled out. Patient told to follow-up with OB/PCP in 3 days to have hCG levels rechecked. Return to ED precautions given. Patient is to agree with plan. Lab Data: Labs: Lab Results 01/31/21 Range/Units 17:38 Ser , Giovany i-Qnt 1821.00 mIU/mL Imaging Data^: US OB: Attestation: I personally reviewed and interpreted this imaging study as follows: Radiologist's impression: [employer] [address] Ultrasound Report Signed Patient: Caryl Roberson Unit #: [id number] : 1985 Age/Sex: 36 / F ADM Date: 01/31/21 Loc: ER Room/Bed: Attending Dr: Ordering Provider/Ordering MD: Carl Godoy Date of Service: 01/31/21 Procedure(s): US OB lmt with transvaginal Accession Number(s): [id number] Report Number: [id number] PROCEDURE INFORMATION: Exam: US , Limited Exam date and time: 01/31/2021 6:21 PM Age: 36 years old Clinical indication: Screening exam; Routine US, uterus; Prior surgery; Surgery date: 6+ months; Surgery type: Tubal reversal and etopic; Additional info: History of ectopic, rescan to check for iup, hcg level 1,821 TECHNIQUE: Imaging protocol: Real-time ultrasound of the maternal uterus with image documentation. Exam focused on the clinical indication. COMPARISON: US OB <=14 wk fetus w transvag 01/29/2021 7:31 PM FINDINGS: Gestation: Negative for intrauterine seen, patient remains at risk for ectopic , please correlate clinically and serial beta HCG levels. MATERNAL: Right adnexa: Right ovary appears unremarkable with color blood flow. Left adnexa: Left ovary 3.2 cm simple cyst may be corpus luteal in nature, color blood flow seen in the left ovary. US/US OB lmt with transvaginal IMPRESSION: 1. Negative for intrauterine seen, patient remains at risk for ectopic , please correlate clinically and serial beta HCG levels. 2. Left ovary 3.2 cm simple cyst may be corpus luteal in nature. Dictated By: Pako Pelayo MD Signed By: Pako Pelayo MD Signed Date/Time: 01/31/211929 DD/ 27 Discharge Plan Discharge Patient Disposition: Home Clinical Impression: Qualifiers: Weeks of gestation: less than 8 weeks Qualified Code(s): Z3A.01 - Less than 8 weeks gestation of Condition: Stable Prescriptions: No Action Vitamin Tablet 1 tab PO DAILY RF: 0 Discharge Orders: Discharge ED (Routine); Ordered 01/31/21 Ordered By: Carl Godoy Discharge Diet: Regular Discharge Activity: Resume usual activity Patient Instructions: (ED) Activity Restrictions/Additional Instructions: Follow-up with medical provider as directed in approximately 3 days to have hCG level rechecked. hCG level today is 1,821. If he can have hCG level checked out OB/PCP office return to the ED to have hCG rechecked. Return to the ER or your medical provider if condition worsens. Please read and understand discharge instructions. Thank you for choosing [facility] for your healthcare needs today. Please realize this is an emergency room and that we are providing you with a medical screening exam and this may not be complete and all inclusive of all the testing and or work up that you may need to determine your ailment or severity of your illness. It is very important that you follow up as instructed or that you return to the Emergency Department should you have concerns or if your condition changes or worsens in any way. Coding Level of Care Code ED Supervisor Extruding Department for Meena Barry Exam Comprehensive
--- NOTE | 2021-01-31 18:21 | USR_ITS ---
PROCEDURE INFORMATION: Exam: US , Limited Exam date and time: 01/31/2021 6:21 PM Age: 36 years old Clinical indication: Screening exam; Routine US, uterus; Prior surgery; Surgery date: 6+ months; Surgery type: Tubal reversal and etopic; Additional info: History of ectopic, rescan to check for iup, hcg level 1,821 TECHNIQUE: Imaging protocol: Real-time ultrasound of the maternal uterus with image documentation. Exam focused on the clinical indication. COMPARISON: US OB <=14 wk fetus w transvag 01/29/2021 7:31 PM FINDINGS: Gestation: Negative for intrauterine seen, patient remains at risk for ectopic , please correlate clinically and serial beta HCG levels. MATERNAL: Right adnexa: Right ovary appears unremarkable with color blood flow. Left adnexa: Left ovary 3.2 cm simple cyst may be corpus luteal in nature, color blood flow seen in the left ovary. US/US OB lmt with transvaginal IMPRESSION: 1. Negative for intrauterine seen, patient remains at risk for ectopic , please correlate clinically and serial beta HCG levels. 2. Left ovary 3.2 cm simple cyst may be corpus luteal in nature.
[2021-01-31 20:04] VITALS: BP 124/82; RESP 16; O2SAT 97
== END 2021-01-31 20:04 | disposition home or self-care (01) ==
PROVIDERS: Nurse Practitioner Family; Absent Provider Obstetrics & Gynecology; Emergency Provider Physician Assistant
DX: O09.11 Supervision of pregnancy with history of ectopic pregnancy, first trimester (principal); Z3A.01 Less than 8 weeks gestation of pregnancy
CPT/HCPCS: 76815; 76817; 84702; 99283

== ENCOUNTER 2021-02-08 17:03 | Emergency (ER) | payer MEDICAID, SELFPAY ==
[2021-02-08 17:22] VITALS: BP 139/80; PULSE 72; RESP 16; TEMP 36.8; O2SAT 100; BMI 33.9
--- NOTE | 2021-02-08 17:29 | W.ED.ABDPA2 ---
HPI - Abdominal Pain General: Chief Complaint: Abdominal Pain Stated Complaint: Lower Side pain, 6 weeks preg Time Seen by Provider: 02/08/21 17:28 History of Present Illness: HPI narrative: Patient comes in with some pelvic discomfort. Patient is in her sixth week of . Patient does have a history of an ectopic and has been having some pain on and off since last week. Patient had a hCG level done last week that was at 1800. Patient appears well. Patient appears in mild to no pain. Patient does have a history of a tubal ligation reversal and as stated previous ectopic . Related Data: Date of Last Menstrual Period: 12/24/20 Review of Systems General: Reports: 10 or more systems reviewed and unremarkable except in HPI and below : Reports: pelvic pain (Right side) and other PFSH ED PFSH: Social History Smoking and tobacco status: never smoked Alcohol intake: never Female Reproductive History: Date of last menstrual period: 12/24/20 Physical Exam Const: COMMON NORMALS: no acute distress and patient oriented x3 GENERAL APPEARANCE: cooperative HENMT: COMMON NORMALS: normocephalic and Normal external nose present HEAD & SCALP: normal to inspection and normocephalic NOSE: Normal external nose present Eye: GENERAL EYE: appearance normal, both eyes and all related structures Neck/C-Spine: COMMON NORMALS: full ROM Chest: COMMONS NORMALS: normal inspection of the chest Resp: COMMON NORMALS: normal respiratory effort EFFORT & INSPECTION: Yes able to speak in complete sentences Cardio: COMMON NORMALS: regular rate and regular rhythm RATE: regular rate RHYTHM: regular rhythm GI: COMMON NORMALS: Soft to palpation and non-tender PALPATION: Yes Soft to palpation and Yes Tenderness to palpation present (GI) Details: RLQ : COMMON NORMALS: Yes no CVA tenderness BLADDER/KIDNEY EXAM: Yes no CVA tenderness Back/Pelvis: COMMON NORMALS: no CVA tenderness and thoracic and lumbar spine normal to inspection Extremity: COMMON NORMALS: normal to inspection Neuro: COMMON NORMALS: patient oriented x3 and moves all extremities Psych: COMMON NORMALS: mental status grossly normal and cooperative Skin: COMMON NORMALS: no rashes or lesions noted GENERAL SKIN EXAM: no rashes or lesions noted Course Vital Signs: Vital signs: Vital Signs Temperature 98.2 F 02/08/21 17:22 Pulse Rate 72 02/08/21 17:22 Respiratory Rate 16 02/08/21 17:22 Blood Pressure 139/80 02/08/21 17:22 Pulse Oximetry 100 02/08/21 17:22 MDM - Abdominal Pain MDM Narrative: Medical decision making narrative: Patient comes in today with complaints of pelvic discomfort. Patient reports pain in the right pelvis area. Patient has had a history of an ectopic and is presently with her fifth . Patient's ectopic was 1 year ago. Patient has had a reversal of a tubal ligation in order to get . Differential diagnosis includes but not limited to ectopic , ovarian cyst, appendicitis. No tenderness is noted in the periumbilical area. Patient has no fever at this time. Laboratory values did note a mild elevation in white blood cell count of 11,000. Remainder of labs were unremarkable. hCG was 16,000. Ultrasound of the pelvis noted a yolk sac in the uterus but no sign of ectopic . Reviewed exam with patient with recommendations for monitoring for fever or worsening symptoms. Patient reported understanding and agreed to plan. Patient to otherwise follow-up with primary care or REAL ESTATE OPERATIONS MANAGER for further instruction. Lab Data: Labs: Lab Results 02/08/21 02/08/21 02/08/21 Range/Units 17:47 17:47 17:47 WBC 11.9 H (4.0-10.0) 10^3/ uL RBC 5.05 (4.1-5.3) 10^6/u L Hgb 14.2 (11.5-15.3) g/dL Hct 43.1 (37.0-47.0) % MCV 85.3 (81-99) fl MCH 28.1 (28.0-34.0) pg MCHC 32.9 (30.0-36.0) g/dL RDW 12.9 (12.1-15.1) % Plt Count 372 (130-400) 10^3/c mm MPV 10.8 H (7.4-10.4) fL Neut % (Auto) 67.7 % Lymph % (Auto) 21.1 % Saline % (Auto) 9.8 % Eos % (Auto) 0.6 % Baso % (Auto) 0.5 % Neut # (Auto) 8.07 H (1.8-7.7) 10^3/u L Lymph # (Auto) 2.5 (0.8-4.8) 10^3/u L Saline # (Auto) 1.2 H (0.2-0.9) 10^3/u L Eos # (Auto) 0.1 (0.0-0.8) 10^3/u L Baso # (Auto) 0.1 (0.0-0.1) 10^3/u L Nucleated RBC % (a uto) 0 % Nucleated RBCs # 0.0 /100WBC Sodium 139 (136-145) mmol/L Potassium 3.6 (3.5-5.1) mmol/L Chloride 102 (98-107) mmol/L Carbon Dioxide 23 (22-29) mmol/L Anion Gap 17.6 (5-19) BUN 9 (6-20) mg/dL Creatinine 0.6 (0.5-0.9) mg/dL GFR Calculation 112.5 (90-130) mL/min Glucose 87 (65-115) mg/dL Calculated Osmolal ity 286 (285-295) mOsm/k g Calcium 9.2 (8.5-10.5) mg/dL Total Bilirubin 0.2 (0.15-1.2) mg/dL AST 19 (0-32) U/L ALT 23 (0-33) U/L Alkaline Phosphata se 73 (35-105) IU/L Total Protein 8.1 (6.6-8.7) g/dL Albumin 4.5 (3.5-5.2) g/dL Globulin 3.6 (1.3-4.6) g/dL Ser , [place]Qnt 98615.00 mIU/mL Urine Color Yellow (Yellow) Urine Appearance Clear (CLEAR) Urine pH 7 (5-7) Ur Specific Gravit y 1.005 (1.005-1.030) Urine Protein Neg (Negative) Urine Glucose (UA) Norm (Normal) Urine Ketones Negative (Negative) Urine Blood Neg (Negative) Urine Nitrate Negative (Negative) Urine Bilirubin Neg (Negative) Urine Urobilinogen Norm (Negative) mg/dL Ur Leukocyte Mitzi ase Negative (Negative) Discharge Plan Discharge Patient Disposition: Home Clinical Impression: Pelvic pain affecting Qualifiers: Trimester: first trimester Qualified Code(s): O26.891 - Other specified related conditions, first trimester Condition: Stable Prescriptions: No Action Vitamin Tablet 1 tab PO DAILY RF: 0 Discharge Orders: Discharge ED (Routine); Ordered 02/08/21 Ordered By: Harlan Dodson Referrals: Caroline De Dios DO [Primary Care Provider] - Discharge Diet: Usual diet Discharge Activity: Increase activity as tolerated Patient Instructions: Opioid Safety Activity Restrictions/Additional Instructions: Continue with routine care. Drink plenty of water. Healthy diet and activity. Use heat or cold to help with pain. You may use Tylenol or other recommended medications for your discomfort. Follow-up with primary care or REAL ESTATE OPERATIONS MANAGER for further instruction. Return to the ER for new concerns. Coding Level of Care Code ED Coding Quality Coordinator for Meena Barry
--- NOTE | 2021-02-08 17:40 | USR_ITS ---
PROCEDURE INFORMATION: Exam: US , Transvaginal Exam date and time: 02/08/2021 5:40 PM Age: 36 years old Clinical indication: complicated by abdominal or pelvic pain; Lower; First trimester (<14 weeks 0 days); Gestational age or lmp: 6w2d; ; Prior surgery; Surgery date: 6+ months; Surgery type: Tubal, tubal reversal, c-sec x 3; Additional info: R/O ectopic, right pelvic pain, hcg 1800 one week ago, history of prior ectopic one year^ago, and history of tubal litigation reversal TECHNIQUE: Imaging protocol: Real-time transvaginal obstetrical ultrasound of the maternal pelvis with image documentation. Transvaginal imaging was used for better evaluation of the fetus, adnexa, and/or cervix. COMPARISON: US OB lmt with transvaginal 01/31/2021 7:08 PM FINDINGS: Gestation: Single gestational sac is present. Single yolk sac is identified. pole is not definitively seen at this time. heart rate: cardiac activity is not documented at this time. MATERNAL: Uterus: Small intramural uterine fibroid incidentally noted in the anterior body. Cervix: Cervical nabothian cysts are present. Cervix is closed. Right adnexa: Maternal right ovary has normal size and appearance with several small follicles. Normal blood flow pattern. Left adnexa: Maternal left ovary has normal blood flow and unremarkable appearance. Small simple cyst 3.9 cm diameter noted. Intraperitoneal space: No pelvic free fluid. US/US OB transvaginal [id number] IMPRESSION: 1. Likely early intrauterine gestation. viability is not confirmed at this time. 2. Technically, ectopic is not excluded at this time. 3. Negative for ovarian torsion. 4. Follow-up with OB ultrasound is recommended in 10-14 days.
[2021-02-08 18:08] LABS: Basophils # 0.1 10^3/uL (0.0-0.1); Basophils % 0.5 %; Eosinophils # 0.1 10^3/uL (0.0-0.8); Eosinophils % 0.6 %; Hematocrit 43.1 % (37.0-47.0); Hemoglobin 14.2 g/dL (11.5-15.3); Lymphocytes # 2.5 10^3/uL (0.8-4.8); Lymphocytes % 21.1 %; Mean Corpuscular HGB Conc 32.9 g/dL (30.0-36.0); Mean Corpuscular Hemoglobin 28.1 pg (28.0-34.0); Mean Corpuscular Volume 85.3 fl (81-99); Mean Platelet Volume 10.8 fL (7.4-10.4); Monocytes # 1.2 10^3/uL (0.2-0.9); Monocytes % 9.8 %; Neutrophils # 8.07 10^3/uL (1.8-7.7); Neutrophils % 67.7 %; Nucleated Red Blood Cells % 0 %; Platelet Count 372 10^3/cmm (130-400); Red Blood Count 5.05 10^6/uL (4.1-5.3); Red Cell Distribution Width 12.9 % (12.1-15.1); White Blood Count 11.9 10^3/uL (4.0-10.0)
[2021-02-08 18:34] LABS: Add Urine Microscopic? NO; Charge for UA Resulting for Rev
[2021-02-08 18:38] LABS: Bilirubin Urine Neg (Negative); Blood Urine Neg (Negative); Glucose Urine UA Norm (Normal); Ketones Urine Negative (Negative); Leukocyte Esterase Urine Negative (Negative); Nitrate Urine Negative (Negative); Protein Urine Neg (Negative); Specific Gravity, Urine 1.005 (1.005-1.030); Urine Appearance Clear (CLEAR); Urine Color Yellow (Yellow); Urobilinogen Urine Norm (Negative); pH Urine 7 (5-7)
[2021-02-08 18:46] LABS: Alanine Aminotransferase 23 U/L (0-33); Albumin Level 4.5 g/dL (3.5-5.2); Alkaline Phosphatase 73 IU/L (35-105); Anion Gap 17.6 (5-19); Aspartate Amino Transferase 19 U/L (0-32); Blood Urea Nitrogen 9 mg/dL (6-20); Calcium 9.2 mg/dL (8.5-10.5); Carbon Dioxide 23 mmol/L (22-29); Chloride 102 mmol/L (98-107); Globulin 3.6 g/dL (1.3-4.6); Glomerular Filtration Rate 112.5 mL/min (90-130); Glucose 87 mg/dL (65-115); Osmolality Calculated 286 mOsm/kg (285-295); Potassium 3.6 mmol/L (3.5-5.1); Sodium 139 mmol/L (136-145); Total Bilirubin 0.2 mg/dL (0.15-1.2); Total Protein 8.1 g/dL (6.6-8.7)
[2021-02-08 19:12] VITALS: BP 121/73; PULSE 74; RESP 18; O2SAT 97
== END 2021-02-08 19:10 | disposition home or self-care (01) ==
PROVIDERS: Emergency Provider Nurse Practitioner Family; PCP Obstetrics & Gynecology
DX: O26.891 Other specified pregnancy related conditions, first trimester (principal); R10.2 Pelvic and perineal pain; Z3A.01 Less than 8 weeks gestation of pregnancy
CPT/HCPCS: 76817; 80053; 81003; 84702; 85025; 99282

== ENCOUNTER → 2021-02-23 13:19 | Outpatient (BNVA) | payer MEDICAID, SELFPAY | PROVIDERS: PCP Obstetrics & Gynecology; Visit Provider Nurse Practitioner Women's Health | DX: N92.6 Irregular menstruation, unspecified (principal) | CPT/HCPCS: 81025 ==

== ENCOUNTER 2021-03-11 11:55 | Emergency (ER) | payer MEDICAID, SELFPAY ==
[2021-03-11 12:11] VITALS: BP 135/92; PULSE 85; RESP 18; TEMP 36.8; O2SAT 99; BMI 34.3
--- NOTE | 2021-03-11 12:42 | ED_ITS ---
HPI - General Adult General: Chief complaint: General Medical Stated complaint: 11 wks w/cramping Time Seen by Provider: 03/11/21 12:27 Source: patient Mode of arrival: ambulatory Limitations: no limitations History of Present Illness: HPI narrative: 36-year-old female who is currently 11 weeks with twin . States she was working today and started having some lower abdominal pain that sharp in nature. States that since she has been resting and been off her feet her pain is improved and is currently 2 out of 10. She denies any discharge denies any bleeding. Denies any previous problems with this . She has had an ultrasound formally before that showed a twin with no other abnormalities. No vomiting. Associated symptoms: Deny chest pain, dyspnea, headache(s) or rash Review of Systems Const: Denies: fever(s), chills, body aches or change in appetite Eyes: Denies: blurry vision or eye discomfort ENMT: Denies: throat pain or dental pain Card: Denies: chest pain Resp: Denies: dyspnea GI: Reports: abdominal pain : Denies: dysuria Musc: Denies: neck pain or back pain Skin/Breast: Denies: rash Neuro: Denies: headache(s) Psych: Denies: depression Antoine/Lymph: Denies: easy bruising All/Imm: Denies: urticaria PFSH ED PFSH: Medical History History of ectopic (~12/2019) No pertinent past medical history neg dx- dm,htn,dvt/pe PCP:none Thyroid disease reports fluxuations Surgical History History of delivery 2002-- CPD 2004--Repeat 2005--Repeat History of hysterosalpingogram (~07/2020) Right tube is patent Left tube occluded History of reversal of tubal ligation (~2019) Dr. Chu in [place] Family History Mother Hypertension Stroke Thyroid disease Sister Thyroid disease Denies family history of Colon cancer Ovarian cancer Diabetes Clotting disorder Breast cancer Bleeding disorder Uterine cancer Social History Smoking and tobacco status: never smoked Alcohol intake: never Female Reproductive History: Date of last menstrual period: 12/24/20 Physical Exam Const: COMMON NORMALS: no acute distress, patient oriented x3 and healthy appearing HENMT: COMMON NORMALS: normocephalic and atraumatic HEAD & SCALP: normocephalic and atraumatic Eye: COMMON NORMALS: Equal, round and reactive pupils present and EOMs intact bilaterally PUPIL: Yes Equal, round and reactive pupils present Neck/C-Spine: COMMON NORMALS: full ROM and supple Chest: COMMONS NORMALS: normal inspection of the chest and normal palpation of entire chest wall Resp: COMMON NORMALS: normal respiratory effort, No retractions, No use of accessory muscles and clear to auscultation bilaterally AUSCULTATION: clear to auscultation bilaterally Cardio: COMMON NORMALS: regular rate, regular rhythm and No murmurs present (Cardio) RATE: regular rate RHYTHM: regular rhythm GI: COMMON NORMALS: Normal to inspection, nondistended, normoactive bowel sounds present, Soft to palpation, non-tender and no masses PALPATION: Yes Soft to palpation Extremity: COMMON NORMALS: normal to inspection and full ROM Neuro: COMMON NORMALS: patient oriented x3, moves all extremities and no focal motor deficits Psych: COMMON NORMALS: mental status grossly normal, Normal thought process present and cooperative THOUGHT PROCESS: Normal thought process present Skin: COMMON NORMALS: no rashes or lesions noted and no wounds GENERAL SKIN EXAM: no rashes or lesions noted Course Vital Signs: Vital signs: Vital Signs Temperature 98.2 F 03/11/21 12:11 Pulse Rate 85 03/11/21 12:11 Respiratory Rate 18 03/11/21 12:11 Blood Pressure 135/92 03/11/21 12:11 Pulse Oximetry 99 03/11/21 12:11 MDM - General Adult MDM Narrative: Medical decision making narrative: Patient presents here with abdominal pain in is likely round ligament pain her exam here is benign I did a bedside ultrasound that showed twin with heart rates of 146 and 152. She has had no bleeding. Patient is stable for discharge is to follow-up with her OB as scheduled on Friday. Lab Data: Labs: Lab Results 03/11/21 12:34 Urine Color Yellow (Yellow) Urine Appearance Clear (CLEAR) Urine pH 5 (5-7) Ur Specific Gravit y 1.020 (1.005-1.030) Urine Protein Neg (Negative) Urine Glucose (UA) Norm (Normal) Urine Ketones 2+ H (Negative) Urine Blood Neg (Negative) Urine Nitrate Negative (Negative) Urine Bilirubin Neg (Negative) Urine Urobilinogen Norm mg/dL mg/dL (Negative) Ur Leukocyte Mizti ase Negative (Negative) Discharge Plan Discharge Patient Disposition: Home Clinical Impression: Abdominal pain affecting Condition: Stable Prescriptions: No Action metoclopramide HCl [Reglan] 5 mg tablet 5 mg PO Q6H PRN (Reason: nausea and vomiting) Qty: 60 RF: 0 ferrous sulfate 325 mg (65 mg iron) tablet 325 mg PO BID Qty: 60 RF: 11 Vitamin Tablet 1 tab PO DAILY RF: 0 Discharge Orders: Discharge ED (Routine); Ordered 03/11/21 Ordered By: Omar Crocker Referrals: Carleen Self MD [Primary Care Provider] - 1-3 days Discharge Diet: Advance as tolerated Discharge Activity: Resume usual activity Patient Instructions: Abdominal Pain (ED) Coding Level of Care Code ED Venetian Blind Installer for Chg Fwd Exam Comprehensive
[2021-03-11] MEDS: HYDROcodone-acetaminophen 5-325 mg Tablet 1 TAB PO (12:46)
[2021-03-11 12:50] LABS: Add Urine Microscopic? NO; Charge for UA Resulting for Rev
[2021-03-11 12:56] LABS: Urine Appearance Clear (CLEAR); Urine Color Yellow (Yellow); pH Urine 5 (5-7)
[2021-03-11 12:57] LABS: Bilirubin Urine Neg (Negative); Blood Urine Neg (Negative); Glucose Urine UA Norm (Normal); Ketones Urine 2+ (Negative); Leukocyte Esterase Urine Negative (Negative); Nitrate Urine Negative (Negative); Protein Urine Neg (Negative); Urobilinogen Urine Norm (Negative)
== END 2021-03-11 13:26 | disposition home or self-care (01) ==
PROVIDERS: Emergency Provider Emergency Medicine; PCP Obstetrics & Gynecology
DX: O26.891 Other specified pregnancy related conditions, first trimester (principal); R10.9 Unspecified abdominal pain; Z3A.11 11 weeks gestation of pregnancy; O30.001 Twin pregnancy, unspecified number of placenta and unspecified number of amniotic sacs, first trimester
CPT/HCPCS: 81003; 99283

== ENCOUNTER 2021-03-16 11:02 | Outpatient (CLI) | payer MEDICAID, SELFPAY ==
[2021-03-16 12:00] LABS: Basophils % 0.2 %; Eosinophils # 0.1 10^3/uL (0.0-0.8); Eosinophils % 0.5 %; Hematocrit 39.9 % (37.0-47.0); Hemoglobin 13.6 g/dL (11.5-15.3); Lymphocytes # 1.9 10^3/uL (0.8-4.8); Lymphocytes % 12.7 %; Mean Corpuscular HGB Conc 34.1 g/dL (30.0-36.0); Mean Corpuscular Hemoglobin 28.9 pg (28.0-34.0); Mean Corpuscular Volume 84.9 fl (81-99); Mean Platelet Volume 10.7 fL (7.4-10.4); Monocytes # 0.7 10^3/uL (0.2-0.9); Monocytes % 5.1 %; Neutrophils # 11.79 10^3/uL (1.8-7.7); Nucleated Red Blood Cells % 0 %; Platelet Count 364 10^3/cmm (130-400); Red Cell Distribution Width 13.3 % (12.1-15.1); White Blood Count 14.6 10^3/uL (4.0-10.0)
[2021-03-16 12:31] LABS: Hepatitis B Surface Antigen Non-Reactive (Nonreactive); Hepatitis C Virus Antibody Non-Reactive (Nonreactive)
[2021-03-16 14:58] LABS: Rubella IgG 41.9 IU/mL (0.0-10.0); Thyroid Stimulating Hormone 0.12 uIU/mL (0.27-4.20)
== END 2021-03-16 11:03 | disposition home or self-care (01) ==
PROVIDERS: PCP Obstetrics & Gynecology; Visit Provider Obstetrics & Gynecology
DX: O09.899 Supervision of other high risk pregnancies, unspecified trimester (principal)
CPT/HCPCS: 36415; 80307; 84315; 84443; 85025; 86762; 86803; 86850; 86900; 87086; 87340; 87491; 87591; 87624; 87661

== ENCOUNTER → 2021-04-20 08:41 | Outpatient (BNVA) | payer MEDICAID, SELFPAY | PROVIDERS: PCP Obstetrics & Gynecology; Visit Provider Obstetrics & Gynecology | DX: O30.001 Twin pregnancy, unspecified number of placenta and unspecified number of amniotic sacs, first trimester (principal); O21.9 Vomiting of pregnancy, unspecified | CPT/HCPCS: 84315; 84443; 86592 ==

== ENCOUNTER → 2021-07-12 11:37 | Outpatient (BNVA) | payer MEDICAID, SELFPAY | PROVIDERS: PCP Obstetrics & Gynecology; Visit Provider Obstetrics & Gynecology | DX: O09.899 Supervision of other high risk pregnancies, unspecified trimester (principal); O30.001 Twin pregnancy, unspecified number of placenta and unspecified number of amniotic sacs, first trimester; O09.521 Supervision of elderly multigravida, first trimester; O21.9 Vomiting of pregnancy, unspecified; Z3A.00 Weeks of gestation of pregnancy not specified | CPT/HCPCS: 82950; 84315; 84443; 85025 ==

== ENCOUNTER 2021-08-28 12:03 | Outpatient (CLI) | payer MEDICAID, SELFPAY ==
[2021-08-28 12:05] VITALS: BMI 38.0
[2021-08-28] MEDS: betamethasone susp 6 mg/mL 5 mL 12 MG IM (12:31)
== END 2021-08-28 12:42 | disposition home or self-care (01) ==
LOC: OPOB 12:04 → OBGYN 12:05
PROVIDERS: PCP Obstetrics & Gynecology; Visit Provider Obstetrics & Gynecology
DX: O30.099 Twin pregnancy, unable to determine number of placenta and number of amniotic sacs, unspecified trimester (principal); Z3A.00 Weeks of gestation of pregnancy not specified
CPT/HCPCS: 96372; J0702

== ENCOUNTER 2021-08-29 11:55 | Outpatient (CLI) | payer MEDICAID, SELFPAY ==
[2021-08-29 11:55] VITALS: BMI 37.3
[2021-08-29] MEDS: betamethasone susp 6 mg/mL 5 mL 12 MG IM (12:21)
== END 2021-08-29 12:25 | disposition home or self-care (01) ==
LOC: OPOB 12:03 → OBGYN 12:04
PROVIDERS: PCP Obstetrics & Gynecology; Visit Provider Obstetrics & Gynecology
DX: O26.899 Other specified pregnancy related conditions, unspecified trimester (principal); Z3A.00 Weeks of gestation of pregnancy not specified
CPT/HCPCS: 96372; J0702